=== PATIENT | male | born 1970 | race African-American/Black ===

== ENCOUNTER 2016-11-19 08:53 | Emergency (ER) | payer MEDICARE ==
[~2016-11-19 08:53] MED LIST: *HOMEMEDS; *UNABLE3; ADALAT CC60 MG PO; ALAWAY0.025 % OPH; AMB10 PO; ASAB PO; AT25 PO; BENTYL20 PO; CARDCD120 PO; CARTIA XT120 MG/24 PO; CAT3 PO; CENTRUM TAB1 TAB PO; CORDARONE PO; COREG12 PO; COREG25 PO; COZ50 PO; DEMA100 PO; DEMA20 PO; DIABETA5 PO; DIOVAN HC2 PO; DIOVAN HCT320 MG/25 PO; DIOVAN320 MG PO; DSS PO; DURA50 TOP; EMLA TOP; FLEX PO; FLEXERIL5 MG PO; FLORASTOR250 MG PO; FLUCON2 PO; GLUCPH PO; GLYNASE1.5 PO; HALF81 PO; HUMALOG SC; HUMULIN N1 ML SC; HUMULIN SC; HYDRALAZINE100 MG PO; IMDUR60 PO; IMOD PO; INSNOV7030 SC; INSNOVR SC; KEPPRA500 PO; KLOR-CON 88 MEQ PO; L20 PO; L40 PO; LEVEMFLXPN SC; LIPITOR40 PO; LOM PO; LOP25 PO; LYRICA PO; MAGOX4 PO; MELA3 PO; MINOCIN100 PO; MULTIVIT/MIN PO; NEUR300 PO; NIFEDIAC CC60 MG PO; NORV10 PO; NOVOLOGMIX SC; NOVOPEN SC; NXL6 PO; OXYCON40 PO; P10 PO; PACERONE200 MG PO; PENICILLN VK500 MG PO; PHOSLO PO; PR25 PO; PRILO PO; PRIN10 PO; PRIN20 PO; PROVHFA INH; PROZAC PO; QUESLITE PO; QUESTRAN4 GM PO; ROXICODONE30 MG PO; SEROQUEL1C; SEROQUEL1C PO; SLOWMAG PO; SODBICAR10 PO; SOMATAB PO; THERAPEUTIC PO; TOPROL XL200 MG PO; VITAMIN D2000 UNIT PO; WELCHOL 625 MG625 MG OR; XANAX1 MG PO; XIFAXAN550 MG PO; ZOCOR10 PO
== END 2016-11-19 10:54 | disposition home or self-care (01) ==
LOC: ER 08:53
DX: M54.5 Low back pain (principal); G89.29 Other chronic pain; I50.9 Heart failure, unspecified; I12.9 Hypertensive chronic kidney disease with stage 1 through stage 4 chronic kidney disease, or unspecified chronic kidney disease; N18.9 Chronic kidney disease, unspecified; K21.9 Gastro-esophageal reflux disease without esophagitis; F41.9 Anxiety disorder, unspecified; E11.9 Type 2 diabetes mellitus without complications; Z79.82 Long term (current) use of aspirin; Z79.899 Other long term (current) drug therapy; Z91.013 Allergy to seafood
CPT/HCPCS: 96372; 99283; A9270-GY; J1170; J1200

== ENCOUNTER 2016-11-22 15:02 | Inpatient (IN) | payer MEDICARE ==
--- NOTE | ~2016-11-22 | DS ---
Discharge Summary [facility] [id number] [place] [address] NAME: MILO KRAMER III : 68 STATUS : DIS IN PAT#: [id number] AGE: 46 ADM/REG DATE : 11/22/16 MR#: [id number] REPORT SERV DATE: 12/11/16 DICTATED BY: BEVERLY SAMPSON DATE: 12/08/16 REPORT STATUS : Draft TRANSCRIBED BY: REED DATE: 12/08/16 Data Collection from hospitalization DISCHARGE DIAGNOSES: 1. Septic shock - present on admission - etiology unclear. 2. Encephalopathy. 3. Seizures. 4. End-stage renal disease. 5. Diabetes mellitus. 6. Hypertension. 7. Chronic pain. 8. History of PEA arrest. 9. History of drug abuse. 10.History of renal cell carcinoma, status post partial nephrectomy. 11.History of prior cerebral aneurysm. 12.History of trigeminal neuralgia. 13.History of cerebrovascular accident. CONSULTATIONS: 1. Nathaniel Kirby MD. 2. Melanie Longoria M.D. 3. Ger Alvarez M.D., Ph.D, F.A.C.C. 4. Rajeev Cope M.D. PROCEDURES PERFORMED: 1. Placement of right femoral central line on 11/22/2016. 2. CT scan of the brain without contrast on 11/22/2016. 3. Lumbar spinal puncture on 11/22/2016. 4. CT scan of the abdomen and pelvis without contrast on 11/23/2016. 5. Electroencephalogram on 11/23/2016. MEDICATIONS: Aspirin 81 mg daily, Lipitor 40 mg at bedtime, Cordarone 200 mg daily, Coreg 12.5 mg twice a day, heparin 5000 units subcutaneously every eight hours, NovoLog injection insulin as instructed, Keppra 1000 mg twice a day, Protonix 40 mg before breakfast, Zosyn 3.375 g IV every 12 hours as instructed, Seroquel 25 mg at bedtime, Zoloft 50 mg daily, vancomycin as instructed, Xanax 0.5 mg every eight hours as needed, Norvasc 5 mg twice a day as needed and as instructed, Benadryl as instructed, glucose three tablets as needed, glucose tablets six tablets as needed, [place] 5/325 one tablet every four hours as needed, and nitroglycerin 0.4 mg sublingually as needed. CONDITION AT DISCHARGE: Stable. DISPOSITION: The patient was discharged to [facility] on a renal diet with activities as instructed. HOSPITAL COURSE: This is a 46-year-old man who dialyzes on Mondays, Wednesdays, and Fridays. He was brought to the [facility] Emergency Department after having a witnessed seizure by his mother and grandmother who were at the bedside. En route to the hospital as well as here at Discharge Summary [address] [place]. [address] NAME: MILO KRAMER III : 68 STATUS : DIS IN PAT#: [id number] AGE: 46 ADM/REG DATE : 11/22/16 MR#: [id number] REPORT SERV DATE: 12/11/16 DICTATED BY: BEVERLY SAMPSON DATE: 12/08/16 REPORT STATUS : Draft TRANSCRIBED BY: REED DATE: 12/08/16 [facility], he did receive 2 mg of IV Ativan as well as Keppra 1000 mg. He has a history that does involve previous seizure activity, and on previous discharge, he had been sent to follow up with [facility]. It was unclear through current review with his family if he kept his followup or the consistency of his medication regimen. The patient is postictal currently and was unable to be interviewed for history of present illness or active current complaints. His family reports that that morning they went to check on him for breakfast and he was found on the floor and was foaming at the mouth and actively seizing. As the seizure subsided, his grandmother could not physically raise the patient out of the floor and she contacted EMS for transfer and evaluation. On evaluation, the patient was in a postictal state and did not interact. He had an elevated white count and said that he did not feel well over the last few days since Sunday prior to admission. The family reported no instances of nausea, vomiting, or diarrhea. He has had no febrile episodes. He was in no acute distress at this time. He was admitted to the hospital for further evaluation and treatment. Upon admission, cultures were obtained. He was going to be covered with vancomycin and Zosyn. It was felt that we may need to perform possible lumbar puncture. Echocardiogram was going to be performed. Previous echo showed ejection fraction of 25%. We would treat his magnesium and ionized calcium to be collected as his calcium shows to be somewhat low. He was seen by Dr. Nathaniel Kirby. The patient has had seizures in the past year. He had been noncompliant with taking his anticonvulsive medication. Hypomagnesemia will be corrected to decrease his risk for recurrent seizures. A lumbar puncture was recommended to rule out intracranial infection. Blood cultures were being obtained. He was seen by Dr. Melanie Longoria. A CT scan of the brain without contrast had been performed and it did not show any unusual findings. He had undergone a lumbar puncture, which had shown 4 white blood cells, elevated protein of 84, and a glucose of 65. It was clear and not suggestive of bacterial meningitis. He remained postictal and could maintain an airway. He could answer simple yes and no questions. The etiology of his septic shock was not entirely clear. Blood and urine cultures had been obtained. The patient was felt to be in critical condition. A right femoral central line was placed. Hemodialysis therapy was performed. The next day, his central line was removed inadvertently. Hypoxemic respiratory failure was felt likely secondary to volume overload. This did improve with hemodialysis. He was seen in consultation by Dr. Ger Alvarez regarding elevated troponin. He did report chest pain that was sharp in nature and was worse when taking a deep breath. It had been constant for the past 24 hours. It did not occur prior to the seizure. He reported that he had not been taking his seizure medication prior to this. Electrocardiogram showed sinus rhythm/sinus tachycardia with nonspecific ST-segment changes. Creatinine level was 13 and white count was 33,000. Troponin at its highest was 0.37 and had now decreased to 0.16. Demand-related ischemia was suspected - no acute coronary syndrome. This was felt to be secondary to septic shock and seizure. He appeared relatively stable other than his hemodynamic problems related to septic shock. He had no cardiac chest pain. He is going to be placed back on aspirin and on appropriate long-term cardiac medications. CT scan of the abdomen and pelvis without contrast was performed. He also had an electroencephalogram performed. This was an abnormal EEG characterized by the presence of diffuse slowing of cerebral activity with a large amount of increased lower frequencies seen in the anterior head regions. This EEG was compatible with metabolic encephalopathy. A postictal state could not be ruled out. Clinical correlation was recommended. Kemarionra was increased. Discharge Summary [facility] [address] [place]. [address] NAME: MILO KRAMER III : 68 STATUS : DIS IN PAT#: [id number] AGE: 46 ADM/REG DATE : 11/22/16 MR#: [id number] REPORT SERV DATE: 12/11/16 DICTATED BY: BEVERLY SAMPSON DATE: 12/08/16 REPORT STATUS : Draft TRANSCRIBED BY: MODL DATE: 12/08/16 [address]iz[address] precautions were in place. The patient was also seen by Dr. Rajeev Cope. Vancomycin and Zosyn were continued. Cultures were going to be followed. Cultures were negative thus far. His chest pain had decreased. Procalcitonin level was elevated. He seemed to be recovering well. There had been no Levophed use overnight or throughout the day. He did seem more alert. Blood cultures remained negative. White count had decreased to 20.1. He still had difficulty following commands, felt that he may be back to his baseline. On 11/25/2016, he was feeling better. He had no new symptoms. He was afebrile. His blood cultures remained negative. White count had decreased to 10. He had no chest pain. Coreg dose was increased. He looked better. He was much more alert. His mental status continued to improve. On 11/26/2016, he was still very weak, but was slowly feeling better. His lungs were clear. White count decreased to 4.4. Over the next couple of days, discharge planning was begun. He was evaluated by Physical Therapy. On 11/28/2016, discharge instructions were given. Due to his improved and stable condition, he was discharged to [facility] with the above-stated instructions. Information collected by: Makayla Russo I submit the above information as my discharge summary. TG/REED Beverly Sampson M.D. / [id number] CC: Beverly Sampson M.D. Lionel Bernard M.D., Ph.D, F.A.C.C. MD Rajeev Mars M.D. [facility]
--- NOTE | ~2016-11-22 | HP ---
History And Physical [facility] [address] [place]. [address] NAME: MILO KRAMER 3RD : 68 STATUS : ADM IN [facility]#: [id number] AGE: 46 ADM/REG DATE : 11/22/16 MR#: [id number] REPORT SERV DATE: 11/22/16 DICTATED BY: BEVERLY SAMPSON DATE: 11/22/16 REPORT STATUS : Draft TRANSCRIBED BY: MODL DATE: 11/22/16 DATE OF ADMISSION: 11/22/2016 REASON FOR ADMISSION: End-stage renal disease, the patient with witnessed seizure. HISTORY OF PRESENT ILLNESS: This is a 46-year-old, male patient, who dialyzes on a Sunday, Sunday, Sunday schedule. He is brought to the [facility] Emergency Department status post witnessed seizure today by his mother and grandmother who are at bedside. En route to the hospital as well as here in [facility], he has received cumulatively 2 mg of IV Ativan as well as Keppra 1000 mg. He has a known history that does involve previous seizure activity, and on previous discharge, he has been sent to follow up with [facility]. It is unclear through current review with his family if he has kept his followups or the consistency of his medication regimen. The patient is post-ictal currently and is unable to be interviewed for HPI or active current complaints. His family reports that this morning they went to check on him for breakfast and he was found down in the floor and foaming at the mouth and actively seizing. As the seizure subsided, his grandmother could not physically raise the patient out of the floor, and she contacted EMS for transfer and evaluation. The patient, on evaluation here again is postictal and does not interact. He has an elevated white count, is said to "not feel well" over the last few days since Sunday of this week. The family reports no instances of nausea, vomiting, or diarrhea and report no febrile episodes. The patient is lying in bed this afternoon post- ictal by evaluation and does not have active complaints. He is in no acute distress. Family is present during current evaluation. PAST MEDICAL HISTORY: Positive for end-stage renal disease, dialysis on a Sunday, Sunday, Sunday schedule via a fistula at [facility], history also positive for diabetes mellitus, systolic congestive heart failure with last documented ejection fraction at 25%, AICD placement, AV graft placement in the left upper extremity, prior episodes of PEA arrest. The patient family reports that he was resuscitated previously two times, prior history of drug abuse. History of renal cell carcinoma, status post partial nephrectomy, prior cerebral aneurysm, trigeminal neuralgia, CVA, hypertension, diabetes mellitus, and previous reports of seizure activity. Previous right frontal craniotomy. REVIEW OF SYSTEMS: Review of systems is completed with the assistance of family member. The patient is unable to participate in current medical state. SOCIAL HISTORY: Reported by family; no EtOH, no illicit drugs. No tobacco. FAMILY HISTORY: Noncontributory and not reviewed during this evaluation and admission. MEDICATIONS/ALLERIGES: Unavailable for review currently as well as current allergies will be reviewed post completion by pharmaceutical staff. PHYSICAL EXAMINATION: VITAL SIGNS: Blood pressure 74/36, temperature at 97.8, respiratory rate of 20. He is 100% History And Physical [address] [address] NAME: MILO KRAMER 3RD : 68 STATUS : ADM IN [facility]#: [id number] AGE: 46 ADM/REG DATE : 11/22/16 MR#: [id number] REPORT SERV DATE: 11/22/16 DICTATED BY: BEVERLY SAMPSON DATE: 11/22/16 REPORT STATUS : Draft TRANSCRIBED BY: REED DATE: 11/22/16 on 2 L nasal cannula. GENERAL: He is an obtunded male patient, in no acute distress, lying in bed during evaluation. HEENT: Normocephalic and atraumatic. He is able to open eyes to sternal rub, slightly. No scleral icterus is detected nor conjunctival pallor. NECK: Supple without thyromegaly. No JVD or mass. CHEST: Shows positive S1 and S2. He does have an AICD placed with his left chest wall. LUNGS: Diminished. Basically clear to auscultation throughout without adventitious rhonchi or wheezes. GI: Shows positive bowel sounds in all four quadrants. No appreciable mass. No tenderness. : Deferred. EXTREMITIES: Show positive pulses to all four extremities. He does have a left upper extremity access available with palpable bruit and thrill. : Deferred. NEUROLOGIC: He is untestable. SKIN: Warm, dry, and intact to visualized surfaces. No rash, lesions, or ecchymosis. PSYCH: Mood and affect are not evaluated. LABORATORY DATA: Pertinent laboratories and imaging to this evaluation; CT of the brain without contrast shows a stable head CT status post right frontal craniotomy, continued mild areas of attenuation with subcortical white matter, bilateral superior frontal gyri. Sodium 140, potassium 4.3, chloride 100, CO2 of 21, BUN 38, creatinine 13.20, reflected GFR 5 mL/minute, glucose 76, calcium 6.6, magnesium 1.5, troponin 0.37. B-natriuretic peptide 1749.4. Portable chest x-ray identifies AICD with shallow inspiration. No acute cardiopulmonary abnormality. White blood cell count of 40.7, RBC 4.29, hemoglobin 13.7, hematocrit 43.4, platelets 159. ABG shows a pH of 7.34, pCO2 of 41, oxygen saturation at 96.2, current lactate level at 3.3. IMPRESSION AND PLAN: This is an end-stage renal disease patient who dialyzes on a Sunday, Sunday, Sunday schedule, found down at home, active seizure assumed with transportation by EMS now postictal with dosing of Keppra 1000 mg as well as Ativan of 2 and no active seizure status at this point. Full admission into the ICU level of care with elevated white blood count. We will panculture, cover with vanc and Zosyn, ask Infectious Disease evaluation. There has been discussion of possible lumbar puncture to be undertaken by Dr. Dennis in the emergency department. It is unclear at this point with current plans to recede. Consult Infectious Disease to evaluate given his previous sepsis and current white count on admission. Consult Neurology which I have spoken to today by phone. Consult Cardiology given elevated troponin and previous cardiac history. Undertake serial troponins, watch for elevation, evaluate echocardiogram, hold HD today until he is able to stabilize and place him on Levophed and titrate to maintain MAP of 60 and stabilize his blood pressure. If his blood pressure is unable to be stabilize, he may require CRRT. Protect his left upper extremity fistula, cover broadly with vanc and Zosyn. Ask pharmacy to dose. Evaluate home medications when those become available. Treat his magnesium. Check echocardiogram with previous noted echo showing ejection fraction of 25%. Treat his magnesium and ionized calcium to be collected as his calcium shows to be somewhat low. History And Physical [place] [place] [address] [place]. [address] NAME: MILO KRAMER 3RD : 68 STATUS : ADM IN PAT#: [id number] AGE: 46 ADM/REG DATE : 11/22/16 MR#: [id number] REPORT SERV DATE: 11/22/16 DICTATED BY: BEVERLY SAMPSON DATE: 11/22/16 REPORT STATUS : Draft TRANSCRIBED BY: REED DATE: 11/22/16 We appreciate evaluation and support from all subspecialty services as well as clinical support being given this afternoon by pharmacist on staff. Further modification of treatment plan may be made based on clinical presentation of the patient's laboratory results, further consultation with Renal attending. DICTATED BY: Jorge Luis Browning NP JR/REED Beverly Sampson M.D. / [id number] CC: Lionel Cheatham M.D.
--- NOTE | ~2016-11-22 | OP ---
Record Of Operation [facility] [address] [facility] [place] [address] NAME: MILO KRAMER 3RD : 68 STATUS : ADM IN PAT#: [id number] AGE: 46 ADM/REG DATE : 11/22/16 MR#: [id number] REPORT SERV DATE: 11/23/16 DICTATED BY: MERARY LONGORIA DATE: 11/23/16 REPORT STATUS : Draft TRANSCRIBED BY: MODL DATE: 11/23/16 DATE OF PROCEDURE: 11/22/2016 PROCEDURE: Placement of right femoral central line. REASON: The patient in septic shock and is in need of pressors and has no IV access. DESCRIPTION OF PROCEDURE: Consent was obtained from the patient. Risks and benefits were discussed. The right groin was prepped and draped in sterile fashion. Lidocaine 1% was used as local anesthetic. The right femoral vein was localized using ultrasound guidance. Large bore needle was inserted into the right femoral vein. Good blood return was obtained. A guidewire was then threaded through the large bore needle, which was then removed. The site was dilated. A triple-lumen 20 cm catheter was passed over the guidewire, which was then removed. Good blood return was obtained from all three ports. Sterile Biopatch was applied. Line was sewn in place with 2-0 silk and sterile dressing was applied. /REED Merary Longoria M.D. / [id number] CC: Lionel Cheatham M.D.
--- NOTE | ~2016-11-22 | CN ---
Consultation Report [facility] [address] [facility] [address] [place]. [address] NAME: MILO KRAMER 3RD : 68 STATUS : ADM IN PAT#: [id number] AGE: 46 ADM/REG DATE : 11/22/16 MR#: [id number] REPORT SERV DATE: 11/23/16 DICTATED BY: GER ROSS DATE: 11/23/16 REPORT STATUS : Draft TRANSCRIBED BY: MODL DATE: 11/23/16 CARDIOLOGY CONSULTATION DATE OF CONSULTATION: REASON FOR CONSULTATION: Elevated troponin. HISTORY OF PRESENT ILLNESS: Mr. Kramer is a 46-year-old man with end-stage renal disease and history of seizure disorder with also coronary disease, mild cardiomyopathy with an EF in the 40% range. We have not seen him for several months in the office. He reportedly had been doing fairly well, going to dialysis on a regular basis. He had a seizure a couple of days ago and was brought to the hospital after being found down with active seizure. He was postictal initially in the emergency room. Evaluation also suggested septic syndrome. The patient was admitted. He had elevated troponins and consultation was requested. There was no history of chest pain prior to that. He is now clinically improved. He is awake and answering questions. He does report chest pain that he described sharp in nature and worse when taking a deep breath. It has been constant for the past 24 hours. It did not occur prior to the seizure. He reports not taking seizure medicines prior to this. He had no dyspnea or chest pain prior to this episode. REVIEW OF SYSTEMS: The review of systems is as per the history of present illness. 10 other systems are negative. PAST MEDICAL HISTORY: 1. End-stage renal disease, on hemodialysis. 2. History of seizure disorder. 3. Diabetes. 4. History of defibrillator placement, 10/2015. 5. History of drug use. 6. History of stroke. 7. Hypertension. 8. Diabetes. 9. Ischemic cardiomyopathy. Echocardiogram 02/2016 with EF of 40%. 10.Coronary artery disease with arteriogram 10/2015 with occluded distal circumflex, left- to-left collaterals with no other significant disease. FAMILY HISTORY: Positive for hypertension and heart disease. SOCIAL HISTORY: Occasional tobacco. Patient lives with parents. ALLERGIES: SHELLFISH. HOME MEDICATIONS: Xanax as directed, amiodarone 800 daily, Lipitor 40 at bedtime, Omnicef Consultation Report [facility] [address] [place]. [address] NAME: MILO KRAMER 3RD : 68 STATUS : ADM IN PAT#: [id number] AGE: 46 ADM/REG DATE : 11/22/16 MR#: [id number] REPORT SERV DATE: 11/23/16 DICTATED BY: GER ROSS DATE: 11/23/16 REPORT STATUS : Draft TRANSCRIBED BY: REED DATE: 11/23/16 300 p.o. b.i.d., Flexeril 10 t.i.d., fentanyl, Keppra, oxycodone, Phenergan, Seroquel, Zoloft, Ambien. PHYSICAL EXAMINATION: VITAL SIGNS: Temperature 98.0, heart rate 120, blood pressure 104/55. GENERAL: The patient is a pleasant, healthy-appearing black male. He does have a craniotomy scar on the right frontal area. HEENT: Conjunctivae are anicteric, no xanthelasma, lips without cyanosis. NECK: Supple, carotids +2 without bruit. Jugular venous pressure does not appear to be elevated. LUNGS: Decreased breath sounds in the bases. CARDIOVASCULAR: Tachycardic. Normal S1 and S2. 1-2/6 systolic ejection murmur. ABDOMEN: Soft, nontender, nondistended. EXTREMITIES: No edema. NEURO/PSYCH: Alert and oriented to person, place and time. No obvious neurologic deficits. Mood and affect normal. DATA: Electrocardiogram shows sinus rhythm/sinus tachycardia with nonspecific ST-segment changes. Procalcitonin was 93, creatinine is 13. White blood cell count was 33,000. Troponin highest was 0.37, now decreased to 0.16. IMPRESSION: 1. Septic shock, on pressors. 2. Status post seizure, history of medication noncompliance. 3. Elevated troponin. Suspect demand related ischemia. No acute coronary syndrome. Secondary to septic shock and seizure. 4. End-stage renal disease. 5. Coronary artery disease with previously occluded distal circumflex. 6. Ischemic cardiomyopathy. EF 40% by previous echo. 7. History of defibrillator placement. 8. Hypertension and hypercholesterolemia with diabetes. 9. Noncardiac chest pain by history. RECOMMENDATIONS: Mr. Kramer's cardiac status appears relatively stable other than hemodynamic problems related to septic shock. I believe his troponins are easily explainable by his sepsis and seizure. He has no cardiac chest pain. His current chest pain certainly sounds noncardiac in nature. He has no acute EKG changes. His troponin is declining with ongoing sharp chest pain. I would get him back on aspirin and get him on appropriate long-term cardiac medicines, but would not pursue any further cardiac evaluation at this time. Thank you for this consultation. Please contact me if you have any further questions. Consultation Report [place] [id number] [facility] [address] NAME: MILO KRAMER 3RD : 68 STATUS : ADM IN PAT#: [id number] AGE: 46 ADM/REG DATE : 11/22/16 MR#: [id number] REPORT SERV DATE: 11/23/16 DICTATED BY: GER ROSS DATE: 11/23/16 REPORT STATUS : Draft TRANSCRIBED BY: REED DATE: 11/23/16 WO/REED Ger Ross M.D., Ph.D, F.A.C.C. / [id number] CC: Lionel Cheatham M.D.
--- NOTE | ~2016-11-22 | EEG ---
Electroencephalogram [id number] [place]. [address] NAME: MILO KRAMER 3RD : 68 STATUS : ADM IN PAT#: [id number] AGE: 46 ADM/REG DATE : 11/22/16 MR#: [id number] REPORT SERV DATE: 11/23/16 DICTATED BY: NATHANIEL KIRBY DATE: 11/23/16 REPORT STATUS : Draft TRANSCRIBED BY: MODL DATE: 11/23/16 INTERPRETING PHYSICIAN: Nathaniel Kirby MD. EEG NUMBER: [id number]. REASON FOR EEG: Recurrent seizures, history of cerebral aneurysm repair, status post craniotomy. 23 surface electrodes, 10-20 international placement was used. The patient was noted to be drowsy and asleep throughout the study. The background activity consisted of poorly organized, moderate to high voltage, irregular in appearance, 5-6 cycles per second located in the posterior head regions. Continuous frontal slowing was seen, more prominent in right frontal central regions. High voltage theta and delta range activity of 2-3 hertz was seen throughout this study. That area corresponds the patient's post craniotomy. The patient's monitor car operator showed sinus tachycardia, heart rate of approximately 120 beats per minute. Photic stimulation did not produce any changes. No driving response posteriorly was noted. Video monitoring was utilized. No tonic-clonic activity was seen, although patient appeared restless towards the end of the study. IMPRESSION: ABNORMAL EEG CHARACTERIZED BY PRESENCE OF DIFFUSE SLOWING OF CEREBRAL ACTIVITY WITH LARGE AMOUNT OF INCREASED LOWER FREQUENCIES SEEN IN THE ANTERIOR HEAD REGIONS. THIS EEG IS COMPATIBLE WITH METABOLIC ENCEPHALOPATHY. A POSTICTAL STATE COULD NOT BE RULED OUT. CLINICAL CORRELATION IS RECOMMENDED. NICOLAA/REED Nathaniel Kirby MD / [id number] CC: Lionel Cheatham M.D.
--- NOTE | ~2016-11-22 | CN ---
Consultation Report [facility] [address] [place]. [address] NAME: MILO KRAMER 3RD : 68 STATUS : ADM IN PAT#: [id number] AGE: 46 ADM/REG DATE : 11/22/16 MR#: [id number] REPORT SERV DATE: 11/23/16 DICTATED BY: NATHANIEL KIRBY DATE: 11/22/16 REPORT STATUS : Draft TRANSCRIBED BY: MODL DATE: 11/22/16 NEUROLOGICAL CONSULTATION EVALUATION DATE OF CONSULTATION: 11/22/2016 REQUESTING PHYSICIAN: Nephrology Service and [facility]. LOCATION OF THE PATIENT: Emergency room bed 10. The patient is being admitted to the CCU. This is a critical care visit, approximately 55 minutes. HISTORY OF PRESENT ILLNESS: History was obtained from patient's mother who was at the patient's bedside. The patient was brought to the emergency room after he was found to have generalized tonic-clonic seizure while at home. The patient was not able to participate in the interview in view of his poorly responsive state. The patient was found by his elderly father to have tonic-clonic activity involving both arms and legs, and the patient being totally unresponsive for several minutes. As per the patient's mother, this seizure lasted 7-8 minutes. The patient was unresponsive, confused, and had difficulty breathing. The patient has had seizures in the past year, has been noncompliant with taking his anticonvulsant medication. PAST MEDICAL HISTORY: A 46-year-old male with history of end-stage disease on hemodialysis, past history of cerebrovascular accident six years ago and cerebral aneurysm repair at the same time which was performed in one of the hospitals in [place]. The patient has had a pacemaker placement and defibrillator placement in June of last year. In addition, the patient has had multiple surgeries which included left shoulder surgery in March of last year followed by postsurgical infection. As per the patient's mother, the patient stayed in hospital for a month on IV antibiotics, was then transferred to the rehabilitation. The patient does have history of kidney biopsy done three years ago and as per the patient's mother, it was told it was cancer which apparently was cured by surgery. The patient did not take chemotherapy or other anticancer treatment. The patient started having generalized seizures last year and was seen by one of our neurologist in [facility], at that time, started on Keppra which patient was taking twice a day. However, it is not clear when the patient stopped taking his medication or whether he had been compliant with his visits to neurologist. As per patient's mother, he may have stepped taking his medications "long time ago." FAMILY HISTORY: Significant history of hypertension, colon cancer, history of stroke in the patient's grandfather on the maternal side, grandfather on paternal side, and history of leukemia. ALLERGIES: TO SHRIMP. ALLERGIES TO MEDICATION, ? ALLERGY TO IODINE. Consultation Report [address] [place]. [address] NAME: MILO KRAMER 3RD : 68 STATUS : ADM IN PAT#: [id number] AGE: 46 ADM/REG DATE : 11/22/16 MR#: [id number] REPORT SERV DATE: 11/23/16 DICTATED BY: NATHANIEL KIRBY DATE: 11/22/16 REPORT STATUS : Draft TRANSCRIBED BY: REED DATE: 11/22/16 SOCIAL HISTORY: The patient smokes as per mother occasionally, lives with his elderly parents. The patient has been on disability. MEDICATIONS: The patient's medications included Zoloft 50 mg daily, Flexeril 10 mg three times a day, Xanax 0.5 mg ? at bedtime, 6 pills of "pain medications" a day in addition to other medications which were not brought with the patient. REVIEW OF SYSTEMS: The patient's mother stated the patient in the past three to four days has been complaining of abdominal pain, recently had a flu-like illness, sinus infection. The patient had weight loss which was gradual prior to starting his hemodialysis approximately a year ago. The rest of 14-point review of system was negative. DATA: The patient's CT scan of the head was reviewed, it showed changes related to past craniotomy in the frontal region left greater than right. No evidence of intracranial hemorrhage, extracranial hematoma, or large vascular territory ischemia. No mass-effect. Mastoids are clear. Stable head CT post right frontal craniotomy. Continued mild areas of decreased attenuation within the subcortical white matter of bilateral frontal superior gyri, mild right maxillary sinus mucosal disease. LABORATORY STUDIES: Showed drug screen to be positive for opiates. Arterial blood gases show pH 7.34, pCO2 of 41, pO2 of 90, BE -3.8, oxygen saturation 96.2, hemoglobin 13.2, hematocrit not resulted yet. Sodium 140, potassium 4.3, chloride 100, carbon dioxide 21, BUN 38, creatinine 13.20, GFR 5, calcium 6.6, magnesium 1.5, troponin 0.37, BNP 1749.4. Portable chest; cardiomegaly, AICD, shallow inspiration, no acute cardiopulmonary abnormality. Chest pain profile; WBC count 40,700, RBC 4.29, hemoglobin 13.7, hematocrit 43.4, MCV 101.2. MCH 31.9. Platelet count 159,000. Neutrophils 92.5, monocytes 3.9. PHYSICAL EXAMINATION: VITAL SIGNS: Blood pressure on admission was 80/50. Temperature was 97.8 oral, pulse was 105, respirations 14, O2 saturation 99, MAP 89. GENERAL: The patient was lethargic, aroused briefly, did not follow commands, appeared to resist eye opening on examination, appeared confused, semi-alert. HEAD AND NECK: Examination showed signs of frontal craniotomy. EYE EXAM: Sclerae were not icteric. Conjunctivae were pink. ENT: Exam was difficult to perform in view of poor cooperation. NECK: Neck was supple. There is no Kernig or Brudzinski. CHEST: Symmetrical. Lungs appeared clear. HEART: Auscultation of the heart revealed regular S1, S2. No S3, S4, gallops were noted. ABDOMEN: Difficult to examine, the patient is slightly restless. EXTREMITIES: Show no clubbing, cyanosis. There is no peripheral edema. Decreased muscle bulk was noted in the lower extremities. SKIN: Clear. Some hyperpigmented areas noted in distal legs. Consultation Report [address] [address] NAME: MILO KRAMER 3RD : 68 STATUS : [facility]M [facility]#: [id number] AGE: 46 ADM/REG DATE : 11/22/16 MR#: [id number] REPORT SERV DATE: 11/23/16 DICTATED BY: NATHANIEL KIRBY DATE: 11/22/16 REPORT STATUS : Draft TRANSCRIBED BY: REED DATE: 11/22/16 NEUROLOGICAL EXAMINATION: The patient appeared either postictal, had altered mental status related to other pathology. He was not cooperative, did not follow commands well. Examination showed no significant asymmetry on inspection of the face. The patient resist eye opening, appeared to have no evidence of dysconjugate gaze. The pupils were 2 mm, reacted to light. Funduscopic exam impossible to perform. Motor examination showed slight decrease of strength in the left distal leg as compared to the rest of motor function in the extremities when partially responding, partially resisting movement. Deep tendon reflexes were difficult to perform, appeared symmetrical in upper extremities, decreased in lower extremities. IMPRESSION: 1. Recurrent seizures, rule out noncompliance to anticonvulsants treatment and regiment, past history of CVA, past history of cerebral aneurysm surgery. 2. End-stage renal disease, on hemodialysis. 3. Hypertension, questionable control. 4. Diabetes, probable peripheral neuropathy. 5. Increased risk of stroke. 6. Past history of multiple surgeries including shoulder surgery followed by postoperative infection with prolonged antibiotic treatment and rehabilitation. 7. Profound leukocytosis. WBC count of 40, cause to be determined. Certainly differential diagnosis includes infectious process versus underlying cancer. 8. Macrocytosis. Rule out vitamin B12 or folate deficiency. 9. History of cardiac arrhythmias. Pacemaker placement. Defibrillator placement. I recommend to provide a loading dose of 1500 mg of Keppra, thereafter continue with 1000 mg of Keppra b.i.d. EEG tomorrow. The patient will not be able to have the MRI. We will monitor patient with repeated CTs if needed. CTA may be helpful to determine if the patient has the recurrent cerebral aneurysm or other vascular abnormalities. 10.Electrolyte imbalance. Hypomagnesemia which needs to be corrected to decrease risk for recurrent seizures. I recommend to obtain a lumbar puncture to rule out intracranial infection. All above points were discussed with the patient's health promotion manager ( ). Rule out underlying sepsis, the patient will be getting blood cultures done prior to leaving the emergency room to go to the CCU. Thank you for allowing me to participate in this patient's care. Neurology will follow with you. ZION/MODL Nathaniel Kirby MD Consultation Report [address] [place] [place]. [address] NAME: MILO KRAMER 3RD : 68 STATUS : ADM IN PAT#: [id number] AGE: 46 ADM/REG DATE : 11/22/16 MR#: [id number] REPORT SERV DATE: 11/23/16 DICTATED BY: NATHANIEL KIRBY DATE: 11/22/16 REPORT STATUS : Draft TRANSCRIBED BY: REED DATE: 11/22/16 / [id number] CC: Lionel Cheatham M.D.
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
[2016-11-22 15:28] LABS: BASOPHILS 0.1 %; BASOPHILS ABSOLUTE 0.03 10/3/uL (0.0-0.16); EOSINOPHILS 0 %; HEMOGLOBIN 13.7 g/dL (13.6-17.8); IMMATURE GRANULOCYTES 0.5 %; IMMATURE GRANULOCYTES ABSOLUTE 0.21 10/3/uL (0.0-0.11); LYMPHOCYTES ABSOLUTE 1.23 10/3/uL (0.67-4.30); MEAN CORPUS HGB CONC 31.6 g/dL (32.0-36.0); MEAN CORPUSCULAR HEMOGLOB 31.9 pg (26.0-34.0); MEAN PLATELET VOLUME 11.2 fL (9.2-13.0); MONOCYTES 3.9 %; NEUTROPHILS 92.5 %; NEUTROPHILS ABSOLUTE 37.66 10/3/uL (2.02-8.40); RBC DISTRIBUTION WIDTH 16.6 % (12.0-16.0); RED CELL COUNT 4.29 10/6/uL (4.7-6.1)
[2016-11-22 15:32] LABS: ER CBC TAT 0 Hrs 09 Mins; HEMATOCRIT 43.4 % (40.0-51.0); MEAN CORPUSCULAR VOLUME 101.2 fL (80-100); PLATELET COUNT 159 10/3/uL (150-400); WHITE BLOOD CELLS 40.7 10/3/uL (4.5-10.5)
[2016-11-22 15:35] LABS: MANUAL DIFF NO %
[2016-11-22 15:45] LABS: INTERNATIONAL NORMAL RATI 1.4 UNITS (-); PROTIME (NOT ORD) 16.8 SEC (12.0-14.5)
[2016-11-22 15:46] LABS: BUN (BLOOD UREA NITROGEN) 38 MG/DL (6-23); CALCIUM, SERUM 6.6 MG/DL (8.5-10.4); CHEST PAIN PROFILE TAT 0 Hrs 23 Mins; CHLORIDE, SERUM 100 MMOL/L (96-112); CO2 (CARBON DIOXIDE) 21 MMOL/L (24-34); GFR AFRICAN AMERICAN 5 ML/MIN (>=60); GFR NON AFRICAN AMERICAN 4 ML/MIN (>=60); GLUCOSE, SERUM 76 MG/DL (60-99); POTASSIUM, SERUM 4.3 MMOL/L (3.5-5.3); SODIUM, SERUM 140 MMOL/L (135-148); TROPONIN I 0.37 NG/ML (<0.05)
[2016-11-22 16:01] LABS: BAND NEUTROPHILS 29 %; ER DIFF TAT 0 Hrs 38 Mins; IMMATURE GRANS ABSOLUTE (CALC) 1.63 10/3/uL (0.0-0.11); LYMPHOCYTES 3 %; LYMPHOCYTES ABSOLUTE (CALC) 1.22 10/3/uL (0.67-4.30); METAMYELOCYTES 2 %; MONOCYTES 4 %; MONOCYTES ABSOLUTE (CALC) 1.63 10/3/uL (0.21-1.20); MYELOCYTES 2 %; NEUTROPHILS ABSOLUTE (CALC) 36.22 10/3/uL (2.02-8.40); SEGMENTED NEUTROPHIL (0) 60 %; TOTAL NUCLEATED CELLS 100
[2016-11-22 16:07] LABS: PLATELET ESTIMATE ADQ (ADEQUATE)
[2016-11-22 16:08] LABS: MACROCYTES 1+ (5-10/OIF) (0-5/OIF)
[2016-11-22 16:09] LABS: BURR CELLS 1+ (3-10/OIF) (0-2/OIF)
[2016-11-22 16:10] LABS: ALLENS TEST Pos; BE (BASE EXCESS) -3.8 MEQ/L (0 +/- 2.5); CARBOXYHEMOGLOBIN 2.5 % (0-3); DEVICE NC; HCO3 (ACTUAL BICARBONATE) 21.7 MEQ/L (23-27); HEMOBLOGIN CONTENT 13.2 G/DL (14-18); INSTRUMENT SERIAL # 8087; METHEMOGLOBIN 0.2 % (0-3); O2 CONTENT 17.5 VOL% (18-24); PCO2 (CO2 TENSION) 41 MMHG (35-45); PO2 (O2 TENSION) 90 MMHG (79-93); SAMPLE Arterial; pH 7.34 (7.37-7.43)
[2016-11-22] MEDS ORDERED: ROXICODONE30 MG PO (16:53)
[2016-11-22] MEDS ORDERED: OMNICEF300 PO (16:53)
[2016-11-22] MEDS ORDERED: X5 PO (16:54)
[2016-11-22] MEDS ORDERED: KEPPRA500 PO (16:54)
[2016-11-22] MEDS ORDERED: ZOL50 PO (16:54)
[2016-11-22] MEDS ORDERED: PACERONE400 MG PO (16:54)
[2016-11-22] MEDS ORDERED: AMB10 PO (16:55)
[2016-11-22] MEDS ORDERED: PR25 PO (16:55)
[2016-11-22] MEDS ORDERED: SEROQUEL25 PO (16:55)
[2016-11-22] MEDS ORDERED: FLEX PO (16:55)
[2016-11-22] MEDS ORDERED: LIPITOR40 PO (16:55)
[2016-11-22] MEDS ORDERED: DURA50 TOP (16:56)
[2016-11-22 17:51] LABS: AMPHETAMINES (NOT ORD) NEG (NEG); BARBITURATES (NOT ORDERED NEG (NEG); BENZODIAZEPINES (NOT ORD) NEG (NEG); CANNABINOIDS (THC) NEG (NEG); COCAINE (NOT ORDERED) NEG (NEG); OPIATES POS (NEG); PHENCYCLIDINE(PCP) NEG (NEG); TRICYCLICS NEG (NEG)
[2016-11-22 19:06] LABS: GLUCOSE CSF 65 MG/DL (45-70); TOTAL PROTEIN, CSF 84.7 MG/DL (15-45)
[2016-11-22 19:59] LABS: CSF APPEARANCE (NOT ORD) CLEAR (CLEAR); CSF BASO 0 % (NO REF RANGE); CSF COLOR (NOT ORD) COLORLESS (COLORLESS); CSF EOS 0 % (0-1); CSF LYMPH (NOT ORD) 65 % (28-96); CSF MONO 34 % (16-56); CSF RBC (NOT ORD) 0 MM3 (NO REFERENCE); CSF SEGS (NOT ORD) 1 % (0-7); CSF WBC (NOT ORD) 4 /uL (0-10); CSF XANTHROCHROMIA NEG (NEG)
[2016-11-22 22:09] LABS: CPK 344 U/L (0-200)
[2016-11-22 22:13] LABS: CK-MB 2.9 NG/ML
[2016-11-22 22:25] LABS: ASCORBIC ACID (UR NOT ORDER) NEG (NEG); BILIRUBIN, URINE NEGATIVE (NEG); KETONE, URINE TRACE MG/DL (NEG); LEUKOCYTE ESTERASE(NOT OR TRACE (NEG); WBC (NOT ORDERED) (RFLEX) 9 (0-5)
[2016-11-23 00:33] LABS: BASOPHILS 0.1 %; BASOPHILS ABSOLUTE 0.04 10/3/uL (0.0-0.16); EOSINOPHILS 0.1 %; EOSINOPHILS ABSOLUTE 0.02 10/3/uL (0.0-0.53); HEMATOCRIT 39.4 % (40.0-51.0); HEMOGLOBIN 12.3 g/dL (13.6-17.8); IMMATURE GRANULOCYTES 1.5 %; IMMATURE GRANULOCYTES ABSOLUTE 0.59 10/3/uL (0.0-0.11); LYMPHOCYTES 4.1 %; LYMPHOCYTES ABSOLUTE 1.61 10/3/uL (0.67-4.30); MEAN CORPUS HGB CONC 31.2 g/dL (32.0-36.0); MEAN CORPUSCULAR HEMOGLOB 31.3 pg (26.0-34.0); MEAN CORPUSCULAR VOLUME 100.3 fL (80-100); MEAN PLATELET VOLUME 10.9 fL (9.2-13.0); MONOCYTES 5.2 %; MONOCYTES ABSOLUTE 2.05 10/3/uL (0.21-1.20); NEUTROPHILS ABSOLUTE 34.84 10/3/uL (2.02-8.40); PLATELET COUNT 141 10/3/uL (150-400); RBC DISTRIBUTION WIDTH 16.3 % (12.0-16.0); RED CELL COUNT 3.93 10/6/uL (4.7-6.1); WHITE BLOOD CELLS 39.2 10/3/uL (4.5-10.5)
[2016-11-23 00:34] LABS: MANUAL DIFF NO %
[2016-11-23 00:46] LABS: INSTRUMENT SERIAL # 35151
[2016-11-23 00:47] LABS: ALLENS TEST Pos; BE (BASE EXCESS) -2.2 MEQ/L (0 +/- 2.5); CARBOXYHEMOGLOBIN 0.6 % (0-3); DEVICE NC; HCO3 (ACTUAL BICARBONATE) 24.1 MEQ/L (23-27); HEMOBLOGIN CONTENT 13.2 G/DL (14-18); METHEMOGLOBIN 0.5 % (0-3); O2 CONTENT 17.6 VOL% (18-24); OPERATOR ID 31061; PCO2 (CO2 TENSION) 47 MMHG (35-45); PO2 (O2 TENSION) 87 MMHG (79-93); SAMPLE Arterial; pH 7.33 (7.37-7.43)
[2016-11-23 00:50] LABS: ANISOCYTOSIS 1+ (5-10/OIF) (0-5/OIF); BAND NEUTROPHILS 17 %; EOSINOPHILS 1 %; EOSINOPHILS ABSOLUTE (CALC) 0.39 10/3/uL (0.0-0.53); IMMATURE GRANS ABSOLUTE (CALC) 0.39 10/3/uL (0.0-0.11); LYMPHOCYTES 3 %; LYMPHOCYTES ABSOLUTE (CALC) 1.18 10/3/uL (0.67-4.30); MACROCYTES 1+ (5-10/OIF) (0-5/OIF); METAMYELOCYTES 1 %; MONOCYTES 6 %; MONOCYTES ABSOLUTE (CALC) 2.35 10/3/uL (0.21-1.20); NEUTROPHILS ABSOLUTE (CALC) 34.89 10/3/uL (2.02-8.40); PLATELET ESTIMATE SLT DEC (ADEQUATE); SEGMENTED NEUTROPHIL (0) 72 %; TOTAL NUCLEATED CELLS 100
[2016-11-23 00:56] LABS: A/G RATIO 0.7 (0.7-1.9); ALBUMIN 2.6 G/DL (3.5-5.0); CHLORIDE, SERUM 100 MMOL/L (96-112); CO2 (CARBON DIOXIDE) 25 MMOL/L (24-34); GFR AFRICAN AMERICAN 5 ML/MIN (>=60); GFR NON AFRICAN AMERICAN 4 ML/MIN (>=60); SGOT(AST) 52 U/L (5-40); SGPT(ALT) 49 U/L (5-65); SODIUM, SERUM 137 MMOL/L (135-148); TOTAL PROTEIN 6.6 G/DL (6.0-8.5)
[2016-11-23 01:02] LABS: ALKALINE PHOSPHATASE 140 U/L (45-117); BUN (BLOOD UREA NITROGEN) 48 MG/DL (6-23); CALCIUM, SERUM 5.8 MG/DL (8.5-10.4); GLUCOSE, SERUM 116 MG/DL (60-99); POTASSIUM, SERUM 6.5 MMOL/L (3.5-5.3); TOTAL BILIRUBIN 1.2 MG/DL (0-1.2)
[2016-11-23 01:14] LABS: INFLUENZA A SCREEN NEGATIVE (NEGATIVE); INFLUENZA B SCREEN NEGATIVE (NEGATIVE)
[2016-11-23 01:36] LABS: PHOSPHORUS, SERUM 6.1 MG/DL (2.5-4.5)
[2016-11-23 02:28] LABS: TROPONIN I 0.17 NG/ML (<0.05)
[2016-11-23 04:38] LABS: HEMATOCRIT 38.1 % (40.0-51.0); MEAN CORPUS HGB CONC 31.5 g/dL (32.0-36.0); MEAN CORPUSCULAR HEMOGLOB 31.3 pg (26.0-34.0); MEAN CORPUSCULAR VOLUME 99.2 fL (80-100); MEAN PLATELET VOLUME 11.7 fL (9.2-13.0); PLATELET COUNT 140 10/3/uL (150-400); RBC DISTRIBUTION WIDTH 16.5 % (12.0-16.0); RED CELL COUNT 3.84 10/6/uL (4.7-6.1)
[2016-11-23 04:41] LABS: MANUAL DIFF YES %; WHITE BLOOD CELLS 33.3 10/3/uL (4.5-10.5)
[2016-11-23 04:56] LABS: ALBUMIN 2.5 G/DL (3.5-5.0); BUN (BLOOD UREA NITROGEN) 50 MG/DL (6-23); CHLORIDE, SERUM 98 MMOL/L (96-112); CO2 (CARBON DIOXIDE) 27 MMOL/L (24-34); GFR AFRICAN AMERICAN 5 ML/MIN (>=60); GFR NON AFRICAN AMERICAN 4 ML/MIN (>=60); GLUCOSE, SERUM 139 MG/DL (60-99); LACTATE 2.3 MMOL/L (0.3-2.4); PHOSPHORUS, SERUM 6.4 MG/DL (2.5-4.5); POTASSIUM, SERUM 5.9 MMOL/L (3.5-5.3); SODIUM, SERUM 135 MMOL/L (135-148)
[2016-11-23 05:11] LABS: CALCIUM, SERUM 6.4 MG/DL (8.5-10.4); TROPONIN I 0.16 NG/ML (<0.05)
[2016-11-23 06:32] LABS: BAND NEUTROPHILS 14 %; IMMATURE GRANS ABSOLUTE (CALC) 0.33 10/3/uL (0.0-0.11); LYMPHOCYTES 8 %; LYMPHOCYTES ABSOLUTE (CALC) 2.66 10/3/uL (0.67-4.30); METAMYELOCYTES 1 %; MONOCYTES 8 %; MONOCYTES ABSOLUTE (CALC) 2.66 10/3/uL (0.21-1.20); NEUTROPHILS ABSOLUTE (CALC) 27.64 10/3/uL (2.02-8.40); SEGMENTED NEUTROPHIL (0) 69 %; TOTAL NUCLEATED CELLS 100
[2016-11-23 06:33] LABS: PLATELET ESTIMATE ADQ (ADEQUATE); RBC MORPHOLOGY NORM (NORMAL)
[2016-11-23 06:47] LABS: PROCALCITONIN 93.15 ng/mL (<0.5)
[2016-11-23 10:56] LABS: FOLATE 9.3 NG/ML (>5.2); TROPONIN I 0.09 NG/ML (<0.05)
[2016-11-23 11:17] LABS: HEPATITIS B SURFACE ANTIGEN NON-REACTIVE (NON-REACT)
[2016-11-23 11:45] LABS: HEPATITIS B CORE AB IGM NON-REACTIVE (NON-REAC); HEPATITIS C ANTIBODY NON-REACTIVE (NON-REACT)
[2016-11-23 11:46] LABS: HIV COMBO NON-REACTIVE (NON REAC)
[2016-11-23 11:47] LABS: HEP A ANTIBODY IGM NON-REACTIVE (NON-REACT)
[2016-11-23 18:32] LABS: BASOPHILS 0.1 %; BASOPHILS ABSOLUTE 0.02 10/3/uL (0.0-0.16); EOSINOPHILS 0.7 %; EOSINOPHILS ABSOLUTE 0.14 10/3/uL (0.0-0.53); HEMOGLOBIN 11.5 g/dL (13.6-17.8); IMMATURE GRANULOCYTES 0.5 %; LYMPHOCYTES ABSOLUTE 1.28 10/3/uL (0.67-4.30); MANUAL DIFF NO %; MEAN CORPUS HGB CONC 31.1 g/dL (32.0-36.0); MEAN CORPUSCULAR HEMOGLOB 30.7 pg (26.0-34.0); MEAN CORPUSCULAR VOLUME 98.9 fL (80-100); MEAN PLATELET VOLUME 11.8 fL (9.2-13.0); MONOCYTES ABSOLUTE 1.28 10/3/uL (0.21-1.20); NEUTROPHILS 86.7 %; NEUTROPHILS ABSOLUTE 18.56 10/3/uL (2.02-8.40); PLATELET COUNT 124 10/3/uL (150-400); RBC DISTRIBUTION WIDTH 16.3 % (12.0-16.0); RED CELL COUNT 3.74 10/6/uL (4.7-6.1); WHITE BLOOD CELLS 21.4 10/3/uL (4.5-10.5)
[2016-11-24 03:42] LABS: BASOPHILS 0.1 %; BASOPHILS ABSOLUTE 0.02 10/3/uL (0.0-0.16); EOSINOPHILS 1.2 %; EOSINOPHILS ABSOLUTE 0.25 10/3/uL (0.0-0.53); HEMATOCRIT 35.1 % (40.0-51.0); IMMATURE GRANULOCYTES 0.7 %; IMMATURE GRANULOCYTES ABSOLUTE 0.15 10/3/uL (0.0-0.11); LYMPHOCYTES 7.6 %; LYMPHOCYTES ABSOLUTE 1.53 10/3/uL (0.67-4.30); MEAN CORPUS HGB CONC 31.3 g/dL (32.0-36.0); MEAN CORPUSCULAR HEMOGLOB 31.3 pg (26.0-34.0); MEAN CORPUSCULAR VOLUME 99.7 fL (80-100); MEAN PLATELET VOLUME 11.1 fL (9.2-13.0); MONOCYTES 6.1 %; MONOCYTES ABSOLUTE 1.22 10/3/uL (0.21-1.20); NEUTROPHILS 84.3 %; NEUTROPHILS ABSOLUTE 16.93 10/3/uL (2.02-8.40); PLATELET COUNT 127 10/3/uL (150-400); RBC DISTRIBUTION WIDTH 16.4 % (12.0-16.0); RED CELL COUNT 3.52 10/6/uL (4.7-6.1); WHITE BLOOD CELLS 20.1 10/3/uL (4.5-10.5)
[2016-11-24 03:43] LABS: MANUAL DIFF NO %
[2016-11-24 03:57] LABS: A/G RATIO 0.7 (0.7-1.9); ALBUMIN 2.8 G/DL (3.5-5.0); CHLORIDE, SERUM 99 MMOL/L (96-112); CO2 (CARBON DIOXIDE) 29 MMOL/L (24-34); SGOT(AST) 33 U/L (5-40); SGPT(ALT) 43 U/L (5-65); SODIUM, SERUM 136 MMOL/L (135-148); TOTAL PROTEIN 6.8 G/DL (6.0-8.5)
[2016-11-24 03:58] LABS: ALKALINE PHOSPHATASE 117 U/L (45-117); BUN (BLOOD UREA NITROGEN) 35 MG/DL (6-23); CALCIUM, SERUM 6.8 MG/DL (8.5-10.4); CREATININE 9.93 MG/DL (0.70-1.30); GFR AFRICAN AMERICAN 6 ML/MIN (>=60); GFR NON AFRICAN AMERICAN 6 ML/MIN (>=60); GLUCOSE, SERUM 69 MG/DL (60-99)
[2016-11-24 04:31] LABS: PHOSPHORUS, SERUM 6.5 MG/DL (2.5-4.5)
[2016-11-24 05:50] LABS: PROCALCITONIN 89.37 ng/mL (<0.5)
[2016-11-25 06:23] LABS: BASOPHILS 0.2 %; BASOPHILS ABSOLUTE 0.02 10/3/uL (0.0-0.16); EOSINOPHILS 3.3 %; EOSINOPHILS ABSOLUTE 0.35 10/3/uL (0.0-0.53); HEMATOCRIT 35.7 % (40.0-51.0); IMMATURE GRANULOCYTES 0.3 %; IMMATURE GRANULOCYTES ABSOLUTE 0.03 10/3/uL (0.0-0.11); LYMPHOCYTES 12.5 %; LYMPHOCYTES ABSOLUTE 1.32 10/3/uL (0.67-4.30); MEAN CORPUS HGB CONC 30.8 g/dL (32.0-36.0); MEAN CORPUSCULAR HEMOGLOB 31.3 pg (26.0-34.0); MEAN CORPUSCULAR VOLUME 101.4 fL (80-100); MEAN PLATELET VOLUME 11.6 fL (9.2-13.0); MONOCYTES 7.1 %; MONOCYTES ABSOLUTE 0.75 10/3/uL (0.21-1.20); NEUTROPHILS 76.6 %; NEUTROPHILS ABSOLUTE 8.08 10/3/uL (2.02-8.40); PLATELET COUNT 142 10/3/uL (150-400); RED CELL COUNT 3.52 10/6/uL (4.7-6.1)
[2016-11-25 06:24] LABS: MANUAL DIFF NO %; WHITE BLOOD CELLS 10.6 10/3/uL (4.5-10.5)
[2016-11-25 06:35] LABS: ALBUMIN 2.8 G/DL (3.5-5.0); CALCIUM, SERUM 7.7 MG/DL (8.5-10.4); CHLORIDE, SERUM 104 MMOL/L (96-112); CO2 (CARBON DIOXIDE) 29 MMOL/L (24-34); GLUCOSE, SERUM 64 MG/DL (60-99); POTASSIUM, SERUM 5.1 MMOL/L (3.5-5.3); SODIUM, SERUM 142 MMOL/L (135-148)
[2016-11-25 06:37] LABS: BUN (BLOOD UREA NITROGEN) 24 MG/DL (6-23); CREATININE 7.62 MG/DL (0.70-1.30); GFR AFRICAN AMERICAN 9 ML/MIN (>=60); GFR NON AFRICAN AMERICAN 8 ML/MIN (>=60); PHOSPHORUS, SERUM 5.3 MG/DL (2.5-4.5)
[2016-11-26 05:53] LABS: BASOPHILS 0.9 %; BASOPHILS ABSOLUTE 0.04 10/3/uL (0.0-0.16); EOSINOPHILS 7.4 %; EOSINOPHILS ABSOLUTE 0.33 10/3/uL (0.0-0.53); HEMATOCRIT 35.9 % (40.0-51.0); IMMATURE GRANULOCYTES 0.2 %; IMMATURE GRANULOCYTES ABSOLUTE 0.01 10/3/uL (0.0-0.11); LYMPHOCYTES 23.3 %; LYMPHOCYTES ABSOLUTE 1.03 10/3/uL (0.67-4.30); MEAN CORPUS HGB CONC 30.6 g/dL (32.0-36.0); MEAN CORPUSCULAR HEMOGLOB 30.8 pg (26.0-34.0); MEAN CORPUSCULAR VOLUME 100.6 fL (80-100); MEAN PLATELET VOLUME 11.7 fL (9.2-13.0); MONOCYTES 11.7 %; MONOCYTES ABSOLUTE 0.52 10/3/uL (0.21-1.20); NEUTROPHILS 56.5 %; PLATELET COUNT 127 10/3/uL (150-400); RBC DISTRIBUTION WIDTH 15.6 % (12.0-16.0); RED CELL COUNT 3.57 10/6/uL (4.7-6.1)
[2016-11-26 05:54] LABS: MANUAL DIFF NO %; WHITE BLOOD CELLS 4.4 10/3/uL (4.5-10.5)
[2016-11-26 05:59] LABS: ALBUMIN 2.7 G/DL (3.5-5.0); CALCIUM, SERUM 7.4 MG/DL (8.5-10.4); CHLORIDE, SERUM 107 MMOL/L (96-112); CO2 (CARBON DIOXIDE) 28 MMOL/L (24-34); PHOSPHORUS, SERUM 5.6 MG/DL (2.5-4.5); POTASSIUM, SERUM 5.1 MMOL/L (3.5-5.3); SODIUM, SERUM 144 MMOL/L (135-148)
[2016-11-26 06:00] LABS: BUN (BLOOD UREA NITROGEN) 35 MG/DL (6-23); GFR AFRICAN AMERICAN 7 ML/MIN (>=60); GFR NON AFRICAN AMERICAN 6 ML/MIN (>=60); GLUCOSE, SERUM 116 MG/DL (60-99)
[2016-11-26 06:59] LABS: PROCALCITONIN 45.91 ng/mL (<0.5)
[2016-11-27 04:18] LABS: BASOPHILS 0.5 %; BASOPHILS ABSOLUTE 0.02 10/3/uL (0.0-0.16); EOSINOPHILS 7.2 %; EOSINOPHILS ABSOLUTE 0.29 10/3/uL (0.0-0.53); HEMATOCRIT 35.5 % (40.0-51.0); HEMOGLOBIN 10.9 g/dL (13.6-17.8); IMMATURE GRANULOCYTES 0.2 %; IMMATURE GRANULOCYTES ABSOLUTE 0.01 10/3/uL (0.0-0.11); LYMPHOCYTES 30.2 %; LYMPHOCYTES ABSOLUTE 1.22 10/3/uL (0.67-4.30); MEAN CORPUS HGB CONC 30.7 g/dL (32.0-36.0); MEAN CORPUSCULAR HEMOGLOB 30.7 pg (26.0-34.0); MEAN PLATELET VOLUME 11.7 fL (9.2-13.0); MONOCYTES 9.9 %; PLATELET COUNT 138 10/3/uL (150-400); RBC DISTRIBUTION WIDTH 15.2 % (12.0-16.0); RED CELL COUNT 3.55 10/6/uL (4.7-6.1)
[2016-11-27 04:20] LABS: MANUAL DIFF NO %
[2016-11-27 04:32] LABS: ALBUMIN 2.6 G/DL (3.5-5.0); CALCIUM, SERUM 7.3 MG/DL (8.5-10.4); CHLORIDE, SERUM 108 MMOL/L (96-112); CO2 (CARBON DIOXIDE) 26 MMOL/L (24-34); PHOSPHORUS, SERUM 5.5 MG/DL (2.5-4.5); POTASSIUM, SERUM 4.9 MMOL/L (3.5-5.3); SODIUM, SERUM 145 MMOL/L (135-148)
[2016-11-27 04:34] LABS: BUN (BLOOD UREA NITROGEN) 43 MG/DL (6-23); GFR AFRICAN AMERICAN 6 ML/MIN (>=60); GFR NON AFRICAN AMERICAN 6 ML/MIN (>=60); GLUCOSE, SERUM 90 MG/DL (60-99)
== END 2016-11-28 19:35 | DRG 871 ==
LOC: ER 15:02 → CCU 18:48 → 2SO 11-24 18:20
PROVIDERS: Emergency Medicine; Internal Medicine Infectious Disease; Internal Medicine Nephrology; Internal Medicine Pulmonary Disease; Registered Nurse
PROC: 009U3ZX Drainage of Spinal Canal, Percutaneous Approach, Diagnostic (ICD-10-PCS; principal; 2016-11-22)
PROC: B01B1ZZ Fluoroscopy of Spinal Cord using Low Osmolar Contrast (ICD-10-PCS; 2016-11-22)
PROC: 06HM33Z Insertion of Infusion Device into Right Femoral Vein, Percutaneous Approach (ICD-10-PCS; 2016-11-22)
PROC: B54BZZA Ultrasonography of Right Lower Extremity Veins, Guidance (ICD-10-PCS; 2016-11-22)
PROC: 02HV33Z Insertion of Infusion Device into Superior Vena Cava, Percutaneous Approach (ICD-10-PCS; 2016-11-23)
PROC: 4A02X4A Measurement of Cardiac Electrical Activity, Guidance, External Approach (ICD-10-PCS; 2016-11-23)
PROC: 06HM33Z Insertion of Infusion Device into Right Femoral Vein, Percutaneous Approach (ICD-10-PCS; 2016-11-23)
PROC: 5A1D60Z (ICD-10-PCS; 2016-11-24)
DX: A41.9 Sepsis, unspecified organism (principal); N18.6 End stage renal disease; R65.21 Severe sepsis with septic shock; G93.40 Encephalopathy, unspecified; I50.22 Chronic systolic (congestive) heart failure; I24.8 Other forms of acute ischemic heart disease; I13.0 Hypertensive heart and chronic kidney disease with heart failure and stage 1 through stage 4 chronic kidney disease, or unspecified chronic kidney disease; E11.22 Type 2 diabetes mellitus with diabetic chronic kidney disease; G40.909 Epilepsy, unspecified, not intractable, without status epilepticus; I25.5 Ischemic cardiomyopathy; G50.0 Trigeminal neuralgia; I25.10 Atherosclerotic heart disease of native coronary artery without angina pectoris; F17.210 Nicotine dependence, cigarettes, uncomplicated; E78.00 Pure hypercholesterolemia, unspecified; J32.0 Chronic maxillary sinusitis; E83.42 Hypomagnesemia; M21.379 Foot drop, unspecified foot; Z83.3 Family history of diabetes mellitus; Z99.2 Dependence on renal dialysis; Z85.528 Personal history of other malignant neoplasm of kidney; Z86.74 Personal history of sudden cardiac arrest; Z86.73 Personal history of transient ischemic attack (TIA), and cerebral infarction without residual deficits; Z95.810 Presence of automatic (implantable) cardiac defibrillator; Z91.013 Allergy to seafood; Z91.14 Patient's other noncompliance with medication regimen; Z98.890 Other specified postprocedural states
CPT/HCPCS: 36569; 36600; 62270; 70450; 71010; 74176; 77003; 80048; 80053; 80069; 80074; 80202; 80305; 81001; 82150; 82330; 82533; 82550; 82553; 82607; 82746; 82805; 82945; 82962; 83605; 83690; 83735; 83880; 84100; 84145; 84157; 84484; 85025; 85610; 85730; 86140; 86710; 87040; 87070; 87077; 87186; 87205; 87389; 87641; 87804; 89051; 93005; 93306; 95816; 96372; 97161-GP; 99283; 99285; A9270-GY; C1751; C9113; G0257; G8978-CK-GP; G8979-CI-GP; J0610; J1170; J1200; J1953; J2543; J3370; P9047

== ENCOUNTER 2016-12-03 07:07 | Emergency (ER) | payer MEDICARE ==
[~2016-12-03 07:07] MED LIST changes: +OMNICEF300 PO; +PACERONE400 MG PO; +SEROQUEL25 PO; +X5 PO; +ZOL50 PO
== END 2016-12-03 18:17 | disposition home or self-care (01) ==
LOC: ER 07:07
DX: R53.83 Other fatigue (principal); E10.9 Type 1 diabetes mellitus without complications; Z91.013 Allergy to seafood; Z79.899 Other long term (current) drug therapy
CPT/HCPCS: 93005; 99285

== ENCOUNTER 2016-12-16 06:41 | Inpatient (IN) | payer MEDICARE ==
--- NOTE | ~2016-12-16 | DS ---
Discharge Summary [facility] [address] [place]. [address] NAME: MILO PARRA : 68 STATUS : DIS IN PAT#: [id number] AGE: 46 ADM/REG DATE : 12/16/16 MR#: [id number] REPORT SERV DATE: 12/30/16 DICTATED BY: HAFSA RAMEY DATE: 12/29/16 REPORT STATUS : Draft TRANSCRIBED BY: REED DATE: 12/29/16 Data Collection from hospitalization DISCHARGE DIAGNOSES: 1. Fever. 2. History of osteomyelitis. 3. Back pain. 4. Hypotension with supraventricular tachycardia. 5. End-stage renal disease. 6. Hypoalbuminemia. 7. Diabetes. 8. Chronic hypertension. 9. History of seizure disorder. 10.Polysubstance abuse including IV drug abuse. 11.History of remote stroke. 12.Coronary artery disease. 13.History of cardiac arrest. CONSULTATIONS: Rajeev Cope M.D. PROCEDURES PERFORMED: 1. CT scan of the cervical spine without contrast on 12/16/2016. 2. CT scan of the sacrum on 12/16/2016. 3. CT scan of the lumbar spine without contrast on 12/16/2016. 4. Ceretec whole-body scan on 12/19/2016. MEDICATIONS: Xanax 0.5 mg daily as needed, Norvasc 10 mg daily, Lipitor 40 mg at bedtime, Cipro 750 mg every 12 hours, Flexeril 10 mg three times a day as needed, Neurontin 300 mg three times a day, Atarax 25 mg twice a day as needed, Keppra 500 mg twice a day, Prilosec 20 mg daily as needed, Roxicodone 60 mg every eight hours as needed, Phenergan 25 mg every eight hours as needed, Seroquel 25 mg at bedtime as needed, Zoloft 50 mg daily, and Ambien 10 mg at bedtime as needed. CONDITION AT DISCHARGE: Stable. DISPOSITION: The patient was discharged home on a low-cholesterol, renal-diabetic diet with no concentrated carbohydrates with activities as instructed. He would follow up with hemodialysis as scheduled. HOSPITAL COURSE: This is a 46-year-old man who had been staying at [facility] and has end-stage renal disease and receives hemodialysis every other day at [facility]. He has a prior history of spinal hardware and he has had osteomyelitis. He has used IV drugs in the past. He had been in his usual state of health until early in the morning on the day prior to this admission when he awoke with severe lower back pain that he said had him crying out in pain. He began to develop chills and shaking chills over the course of the day. He was sent to the emergency department when he was found to have a fever of 104. He presented to the emergency department and had a blood pressure systolic in the 70s to 80s. He was rapidly treated with resuscitation with 3 liters IV normal saline. Systolics Discharge Summary [facility] [address] [place]. [address] NAME: MILO PARRA : 68 STATUS : DIS IN PAT#: [id number] AGE: 46 ADM/REG DATE : 12/16/16 MR#: [id number] REPORT SERV DATE: 12/30/16 DICTATED BY: HAFSA RAMEY DATE: 12/29/16 REPORT STATUS : Draft TRANSCRIBED BY: REED DATE: 12/29/16 remained in the 60s to 90s. Blood cultures were obtained. He was started on vancomycin and Zosyn. Urine culture was in the process of being collected. He indicated that the pain in his back was in the lumbar sacral region. He also had some pain in the lower cervical region posteriorly. He had a very mild headache. Changing positions did not cause complete relief. He was admitted to the hospital at this time for further evaluation and treatment. Upon admission, he was placed in the ICU. Pressors were going to be given as indicated. He was alert and lucid at this time, so it was felt that he could safely protect his airway, so we were going to let him to eat. We were awaiting blood and urine cultures. Hemodialysis therapy would be continued. Vancomycin and Zosyn were also continued. The patient has hypoalbuminemia, suspected secondary to chronic malnutrition. He was on minimal norepinephrine at this time. A CT scan of the cervical spine without contrast and CT scan of the sacrum as well as a CT scan of the lumbar spine without contrast were performed. Zosyn was decreased. Vancomycin was continued. PICC line had been inserted. The following day, the patient was seen by Dr. Rajeev Cope. Followup blood cultures were going to be obtained. He agreed with vancomycin and Zosyn. He felt the patient should undergo a bone scan as the patient said he was feeling much better. His blood pressure was more stable. Blood cultures were negative. Urinalysis had revealed 13 white blood cells. White blood cell count was 13.9. He was still in the ICU. [facility]. On 12/18/2016, his blood cultures remained negative. A CT scan of the lumbar spine had been unremarkable for any suggestion of diskitis or postoperative sepsis focus. Retroperitoneum demonstrated only small para-aortic lymph nodes. CT scan of the sacrum had shown bony fusion of the SI joints from degenerative arthritis. No cortical defect or mass was seen. There was no destructive lesion seen to suggest a focus of infection. CT scan of the cervical spine showed prior fusion C4-C7, which appeared intact. There was no evidence of obvious soft tissue mass or breakdown around the cervical collar. There were some suspect nodes level 1 in the neck raising concern for possible underlying lymphoma. He said he was feeling better. He had no further fevers. His lungs were clear. The next day, he did complain of back pain. He remained afebrile. He was evaluated by Physical Therapy. He continued to do well. On 12/20/2016, he had no new symptoms. Hemodialysis therapy was performed. His bone scan showed no evidence of diskitis, osteomyelitis in the lumbar region or elsewhere in the vertebral column on this. Tagged white blood cell scan. No abnormal soft tissue uptake to suggest a site of infection. Discharge instructions were given. Due to his improved and stable condition, he was discharged home with the above-stated instructions. Information collected by: Makayla Russo I submit the above information as my discharge summary. TG/MODL Hafsa Ramey M.D. / [id number] Discharge Summary [address] [address] NAME: MILO PARRA : 68 STATUS : DIS IN PAT#: [id number] AGE: 46 ADM/REG DATE : 12/16/16 MR#: [id number] REPORT SERV DATE: 12/30/16 DICTATED BY: HAFSA RAMEY DATE: 12/29/16 REPORT STATUS : Draft TRANSCRIBED BY: MODL DATE: 12/29/16 CC: Lionel Gallo M.D. Mark Anderson, M.D.
--- NOTE | ~2016-12-16 | HP ---
History And Physical [place] [id number] [facility] [place]. [address] NAME: MILO KRAMER III : 68 STATUS : ADM IN PAT#: [id number] AGE: 46 ADM/REG DATE : 12/16/16 MR#: [id number] REPORT SERV DATE: 12/16/16 DICTATED BY: HAFSA RAMEY DATE: 12/16/16 REPORT STATUS : Draft TRANSCRIBED BY: MODL DATE: 12/16/16 DATE OF ADMISSION: 12/16/2016 CHIEF COMPLAINT: Fever and back pain. HISTORY OF PRESENT ILLNESS: This is a kind and pleasant 46-year-old, gentleman, who is currently staying at [facility] and who has ESRD and receives hemodialysis every other day at [facility]. He has a prior history of spinal hardware and has had osteomyelitis and has used IV drugs in the past. He was in his usual state of health until survey chief yesterday when he awoke with severe lower back pain that he says had him crying out in pain. He began to develop chills and shaking chills over the course of the day yesterday. He was sent to the emergency department when he had developed a fever of 104 degrees Fahrenheit. He presented to the emergency department with systolic blood pressure in the 70s to 80s and he was rapidly treated with resuscitation with 3 L IV normal saline. Systolics remained in the 60s to 90s and he was sent to the ICU under my direction. Blood cultures have been sent and he was appropriately treated with vancomycin and Zosyn in the emergency department. Urine culture is in the process of being collected. The patient indicates the pain in his back is in the lumbar and sacral region by pointing to that region. He also notes some pain in the lower cervical region posteriorly. He indicates very mild headache at most. Changing positions does not cause complete relief. PAST MEDICAL HISTORY: 1. End-stage renal disease, on hemodialysis. 2. History of seizure disorder. 3. Diabetes. 4. History of AICD placement in October of 2015. He has ischemic cardiomyopathy and was noted to have left ventricular ejection fraction previously 25%, more recently 40% in February 2016. 5. Polysubstance abuse including IV drug abuse. 6. History of stroke remotely. 7. Chronic hypertension. 8. Coronary artery disease with arteriogram in October 2015 demonstrated occluded distal circumflex with left to left collaterals. 9. Previous instrumentation of spine. He had lumbar stenosis and radicular issues and he underwent L4 through S1 laminectomy and fusion in July of 2016. 10.History of irrigation debridement of right septic shoulder in February 2016. 11.Some type of instrumentation into the cervical spine previously. He required hardware in that region also and that is visible on his chest x-ray. 12.Left upper arm AV graft 6 mm [place]-Darius placed by Dr. Denis Rivera in October 2015. 13.Previous cardiac arrest. 14.Last admission was in late October 2016. He presented with septic shock at that time and the etiology was unclear. HOME MEDICATIONS: Alprazolam, atorvastatin, cyclobenzaprine, gabapentin, hydroxyzine, NovoLog 70/30, Keppra, omeprazole, oxycodone, promethazine, Seroquel, sertraline, Ambien as needed. History And Physical [address] [address] NAME: MILO KRAMER III : 68 STATUS : ADM IN [facility]#: [id number] AGE: 46 ADM/REG DATE : 12/16/16 MR#: [id number] REPORT SERV DATE: 12/16/16 DICTATED BY: HAFSA RAMEY DATE: 12/16/16 REPORT STATUS : Draft TRANSCRIBED BY: REED DATE: 12/16/16 ALLERGIES: LISTED ARE SHELLFISH AND MORPHINE. APPARENTLY MORPHINE GAVE HIM HEADACHE AND SHELLFISH HAS GIVEN HIM ANAPHYLAXIS IN THE PAST. FAMILY HISTORY: Positive for hypertension as well as cardiovascular disease. SOCIAL HISTORY: He stays at [facility] presently. He is disabled. He has chronic pain syndrome. He used to work in a chemical plant. When he was not staying at [facility], he was staying at home with his mother. He has teenage children. He is . Positive history of polysubstance abuse including IV drug abuse. REVIEW OF SYSTEMS: GENERAL: Positive chills and rigors as outlined above. GI: Denies nausea, vomiting, or diarrhea. : Still with occasional urinary output. He denied any dysuria. RESPIRATORY: Denies cough and has very mild shortness of breath if any. CARDIOVASCULAR: Denies chest pain. NEUROLOGIC: He denied headaches. Indicates point tenderness in the cervical spine and lumbar spine. No recent seizures. SKIN: No acute rashes. ENT: No sore throat or sinus pain or cough. All other review of systems was negative or noncontributory. PHYSICAL EXAMINATION: VITAL SIGNS: Temperature 101.9, heart rate 104 beats per minute, blood pressure systolic ranges 96-104 with diastolic 50-67 mmHg, respiratory rate 22 breaths per minute. He is presently receiving norepinephrine 0.1 mcg/kg per minute. GENERAL: He is chronically ill-appearing, gentleman, who is talkative and engaging and pleasant. He is in no distress at this time. He does indicate some discomfort in the back region. HEENT: Normocephalic, atraumatic. External ears and nose normal. Sinuses nontender. Oropharynx, mucous membranes moist and pale. Free of any ulcerations or exudates. Eye exam with conjunctivae free of any hemorrhages or exudates. Sclerae anicteric. Extraocular motor functions intact. Sinuses nontender. NECK: Moves easily without meningismus. No palpable masses or nodules. Trachea midline. MUSCULOSKELETAL: There is positive point tenderness to palpation over the cervical spine dorsum, lower cervical spine. There is also point tenderness to palpation. Midline lumbosacral region dorsal as well. LYMPHATIC: Anterior and posterior neck supraclavicular and abdominal regions were free of adenopathy. RESPIRATORY: Efforts are nonlabored. Lung enriquez are clear to auscultation throughout. ABDOMEN: Soft, nontender. Positive bowel sounds throughout. No palpable masses. No guarding. CARDIOVASCULAR: Regular rate and rhythm without any gallop, rub, or murmur. No peripheral edema. No peripheral cyanosis. SKIN: No rashes, breakdown, or discoloration. There is hematoma over small region near the History And Physical [address] [place]. [address] NAME: MILO KRAMER III : 68 STATUS : ADM IN PAT#: [id number] AGE: 46 ADM/REG DATE : 12/16/16 MR#: [id number] REPORT SERV DATE: 12/16/16 DICTATED BY: HAFSA RAMEY DATE: 12/16/16 REPORT STATUS : Draft TRANSCRIBED BY: MODL DATE: 12/16/16 AV graft in the left upper extremity, that region was nontender. There is no fluctuance or drainage. STUDIES: Chemistry: Sodium 140, potassium 3.9, chloride 105, CO2 of 24, BUN 29, creatinine 8.62, glucose 124, calcium 7.6, albumin 2.3, which means that the calcium actually corrects into the normal range. ALT 73, AST 117, alkaline phosphatase 435. Influenza screens were negative. Blood cultures pending. Chest x-ray reveals no acute infiltrate. AICD is noted. The chest x-ray was personally reviewed by me. IMPRESSIONS: 1. Fever, etiology unknown at this time. 2. Back pain in the aforementioned regions which raises possibility of osteomyelitis or possibly abscess or diskitis in the cervical spine or L-spine region. 3. Uncertain if he has had prior osteomyelitis. He has had an instrumentation. He does have hardware in the cervical and lumbosacral spine. 4. Hypotension with SVT which gives a septic picture at least on presentation. He is on minimal norepinephrine at this time. 5. Hypoalbuminemia, suspect secondary to chronic malnutrition. 6. Polysubstance abuse. 7. Chronic pain. 8. End-stage renal disease, for which the patient receives hemodialysis every other day. 9. Other past medical history and chronic problems as outlined above. PLAN: 1. Admission to ICU. 2. Pressors as indicated. 3. He is alert and lucid and I think he can safely protect his airway, so I am going to let him eat. 4. ID consult. 5. CT of lumbosacral spine and C-spine. 6. Await blood cultures and urine culture. 7. Hemodialysis on Mondays, Wednesdays, and Fridays. 8. Continuing vancomycin and Zosyn until seen by ID. USMAN/REED Hafsa Ramey M.D. / [id number] CC: Lionel Gallo M.D.
[2016-12-16 06:49] LABS: BASOPHILS 0.7 %; BASOPHILS ABSOLUTE 0.02 10/3/uL (0.0-0.16); EOSINOPHILS ABSOLUTE 0.11 10/3/uL (0.0-0.53); IMMATURE GRANULOCYTES 0.7 %; IMMATURE GRANULOCYTES ABSOLUTE 0.02 10/3/uL (0.0-0.11); LYMPHOCYTES 19.6 %; LYMPHOCYTES ABSOLUTE 0.54 10/3/uL (0.67-4.30); MEAN CORPUSCULAR HEMOGLOB 30.6 pg (26.0-34.0); MEAN PLATELET VOLUME 11.2 fL (9.2-13.0); MONOCYTES 1.8 %; MONOCYTES ABSOLUTE 0.05 10/3/uL (0.21-1.20); NEUTROPHILS 73.2 %; NEUTROPHILS ABSOLUTE 2.02 10/3/uL (2.02-8.40); PLATELET COUNT 122 10/3/uL (150-400); RBC DISTRIBUTION WIDTH 16.3 % (12.0-16.0); WHITE BLOOD CELLS 2.8 10/3/uL (4.5-10.5)
[2016-12-16 06:50] LABS: HEMATOCRIT 41.6 % (40.0-51.0); HEMOGLOBIN 13.3 g/dL (13.6-17.8); MEAN CORPUSCULAR VOLUME 95.6 fL (80-100); RED CELL COUNT 4.35 10/6/uL (4.7-6.1)
[2016-12-16 06:51] LABS: MANUAL DIFF NO %
[2016-12-16 06:59] LABS: INTERNATIONAL NORMAL RATI 1.1 UNITS (-); PARTIAL THROMBO TIME 31.6 SEC (22.5-37.2)
[2016-12-16 07:07] LABS: INFLUENZA A SCREEN NEGATIVE (NEGATIVE); INFLUENZA B SCREEN NEGATIVE (NEGATIVE)
[2016-12-16 07:11] LABS: LACTATE 2.3 MMOL/L (0.3-2.4)
[2016-12-16 08:46] LABS: A/G RATIO 0.5 (0.7-1.9); ALBUMIN 2.3 G/DL (3.5-5.0); CALCIUM, SERUM 7.6 MG/DL (8.5-10.4); CHLORIDE, SERUM 105 MMOL/L (96-112); CO2 (CARBON DIOXIDE) 24 MMOL/L (24-34); GLOBULIN 4.8 G/DL (2.5-4.1); SGOT(AST) 117 U/L (5-40); SGPT(ALT) 73 U/L (5-65); SODIUM, SERUM 140 MMOL/L (135-148); TOTAL BILIRUBIN 0.9 MG/DL (0-1.2); TOTAL PROTEIN 7.1 G/DL (6.0-8.5)
[2016-12-16 08:50] LABS: ALKALINE PHOSPHATASE 435 U/L (45-117); BUN (BLOOD UREA NITROGEN) 29 MG/DL (6-23); CREATININE 8.62 MG/DL (0.70-1.30); GFR AFRICAN AMERICAN 8 ML/MIN (>=60); GFR NON AFRICAN AMERICAN 7 ML/MIN (>=60); GLUCOSE, SERUM 124 MG/DL (60-99); POTASSIUM, SERUM 3.9 MMOL/L (3.5-5.3)
[2016-12-16 09:51] LABS: PROCALCITONIN 65.34 ng/mL (<0.5)
[2016-12-16] MEDS ORDERED: NEUR300 PO (10:18)
[2016-12-16] MEDS ORDERED: SEROQUEL25 PO (10:19)
[2016-12-16] MEDS ORDERED: KEPPRA500 PO (10:19)
[2016-12-16] MEDS ORDERED: PRILO PO (10:19)
[2016-12-16] MEDS ORDERED: AT25 PO (10:19)
[2016-12-16] MEDS ORDERED: AMB10 PO (10:20)
[2016-12-16] MEDS ORDERED: ROXICODONE30 MG PO (10:20)
[2016-12-16] MEDS ORDERED: LIPITOR40 PO (10:21)
[2016-12-16] MEDS ORDERED: FLEX PO (10:21)
[2016-12-16] MEDS ORDERED: ZOL50 PO (10:21)
[2016-12-16] MEDS ORDERED: X5 PO (10:21)
[2016-12-16] MEDS ORDERED: PR25 PO (10:22)
[2016-12-16] MEDS ORDERED: NOVOLOGMIX (10:22)
[2016-12-16 13:19] LABS: BE (BASE EXCESS) -4.1 MEQ/L (0 +/- 2.5); CARBOXYHEMOGLOBIN 2.2 % (0-3); DEVICE VM; HCO3 (ACTUAL BICARBONATE) 19.8 MEQ/L (23-27); HEMOBLOGIN CONTENT 12.1 G/DL (14-18); INSTRUMENT SERIAL # 8083; METHEMOGLOBIN 0.2 % (0-3); O2 CONTENT 15.2 VOL% (18-24); OPERATOR ID 35188; PCO2 (CO2 TENSION) 32 MMHG (35-45); PO2 (O2 TENSION) 61 MMHG (79-93); SAMPLE Arterial
[2016-12-16 14:20] LABS: ASCORBIC ACID (UR NOT ORDER) NEG (NEG); BILIRUBIN, URINE SMALL (NEG); KETONE, URINE TRACE MG/DL (NEG); LEUKOCYTE ESTERASE(NOT OR TRACE (NEG); WBC (NOT ORDERED) (RFLEX) 13 (0-5)
[2016-12-17 04:28] LABS: HEMOGLOBIN 10.8 g/dL (13.6-17.8); MEAN CORPUS HGB CONC 30.9 g/dL (32.0-36.0); MEAN CORPUSCULAR HEMOGLOB 29.8 pg (26.0-34.0); MEAN CORPUSCULAR VOLUME 96.4 fL (80-100); MEAN PLATELET VOLUME 12.4 fL (9.2-13.0); PLATELET COUNT 139 10/3/uL (150-400); RBC DISTRIBUTION WIDTH 15.9 % (12.0-16.0); RED CELL COUNT 3.62 10/6/uL (4.7-6.1)
[2016-12-17 04:29] LABS: HEMATOCRIT 34.9 % (40.0-51.0); MANUAL DIFF YES %; WHITE BLOOD CELLS 13.9 10/3/uL (4.5-10.5)
[2016-12-17 04:54] LABS: BAND NEUTROPHILS 16 %; LYMPHOCYTES 11 %; LYMPHOCYTES ABSOLUTE (CALC) 1.53 10/3/uL (0.67-4.30); MONOCYTES 3 %; MONOCYTES ABSOLUTE (CALC) 0.42 10/3/uL (0.21-1.20); NEUTROPHILS ABSOLUTE (CALC) 11.95 10/3/uL (2.02-8.40); PLATELET ESTIMATE ADQ (ADEQUATE); RBC MORPHOLOGY NORM (NORMAL); SEGMENTED NEUTROPHIL (0) 70 %; TOTAL NUCLEATED CELLS 100
[2016-12-17 04:55] LABS: ALBUMIN 2.3 G/DL (3.5-5.0); CALCIUM, SERUM 7.8 MG/DL (8.5-10.4); CHLORIDE, SERUM 105 MMOL/L (96-112); CO2 (CARBON DIOXIDE) 25 MMOL/L (24-34); SODIUM, SERUM 139 MMOL/L (135-148)
[2016-12-17 05:01] LABS: BUN (BLOOD UREA NITROGEN) 42 MG/DL (6-23); CREATININE 9.78 MG/DL (0.70-1.30); GFR AFRICAN AMERICAN 7 ML/MIN (>=60); GFR NON AFRICAN AMERICAN 6 ML/MIN (>=60); GLUCOSE, SERUM 169 MG/DL (60-99); PHOSPHORUS, SERUM 2.5 MG/DL (2.5-4.5); POTASSIUM, SERUM 5.6 MMOL/L (3.5-5.3)
[2016-12-18 09:58] LABS: BASOPHILS 0.3 %; BASOPHILS ABSOLUTE 0.03 10/3/uL (0.0-0.16); EOSINOPHILS 5.2 %; HEMATOCRIT 34.1 % (40.0-51.0); HEMOGLOBIN 10.9 g/dL (13.6-17.8); IMMATURE GRANULOCYTES 0.3 %; IMMATURE GRANULOCYTES ABSOLUTE 0.03 10/3/uL (0.0-0.11); LYMPHOCYTES 17.2 %; LYMPHOCYTES ABSOLUTE 1.97 10/3/uL (0.67-4.30); MANUAL DIFF NO %; MEAN CORPUSCULAR HEMOGLOB 29.9 pg (26.0-34.0); MEAN CORPUSCULAR VOLUME 93.4 fL (80-100); MEAN PLATELET VOLUME 11.5 fL (9.2-13.0); MONOCYTES ABSOLUTE 0.69 10/3/uL (0.21-1.20); NEUTROPHILS ABSOLUTE 8.13 10/3/uL (2.02-8.40); PLATELET COUNT 161 10/3/uL (150-400); RBC DISTRIBUTION WIDTH 15.4 % (12.0-16.0); RED CELL COUNT 3.65 10/6/uL (4.7-6.1); WHITE BLOOD CELLS 11.5 10/3/uL (4.5-10.5)
[2016-12-18 10:17] LABS: ALBUMIN 2.6 G/DL (3.5-5.0); CALCIUM, SERUM 8.1 MG/DL (8.5-10.4); CHLORIDE, SERUM 105 MMOL/L (96-112); CO2 (CARBON DIOXIDE) 26 MMOL/L (24-34); GFR AFRICAN AMERICAN 10 ML/MIN (>=60); GFR NON AFRICAN AMERICAN 9 ML/MIN (>=60); GLUCOSE, SERUM 145 MG/DL (60-99); PHOSPHORUS, SERUM 2.2 MG/DL (2.5-4.5); POTASSIUM, SERUM 5.2 MMOL/L (3.5-5.3); SODIUM, SERUM 139 MMOL/L (135-148)
[2016-12-18 10:18] LABS: BUN (BLOOD UREA NITROGEN) 29 MG/DL (6-23); CREATININE 6.84 MG/DL (0.70-1.30)
[2016-12-19 20:17] LABS: BASOPHILS 0.7 %; BASOPHILS ABSOLUTE 0.04 10/3/uL (0.0-0.16); EOSINOPHILS ABSOLUTE 0.59 10/3/uL (0.0-0.53); HEMATOCRIT 32.8 % (40.0-51.0); HEMOGLOBIN 10.2 g/dL (13.6-17.8); IMMATURE GRANULOCYTES 0.2 %; IMMATURE GRANULOCYTES ABSOLUTE 0.01 10/3/uL (0.0-0.11); LYMPHOCYTES 32.4 %; LYMPHOCYTES ABSOLUTE 1.73 10/3/uL (0.67-4.30); MEAN CORPUS HGB CONC 31.1 g/dL (32.0-36.0); MEAN CORPUSCULAR HEMOGLOB 29.9 pg (26.0-34.0); MEAN CORPUSCULAR VOLUME 96.2 fL (80-100); MEAN PLATELET VOLUME 11.1 fL (9.2-13.0); MONOCYTES 9.9 %; MONOCYTES ABSOLUTE 0.53 10/3/uL (0.21-1.20); NEUTROPHILS 45.8 %; NEUTROPHILS ABSOLUTE 2.44 10/3/uL (2.02-8.40); PLATELET COUNT 196 10/3/uL (150-400); RBC DISTRIBUTION WIDTH 15.6 % (12.0-16.0); RED CELL COUNT 3.41 10/6/uL (4.7-6.1)
[2016-12-19 20:18] LABS: MANUAL DIFF NO %; WHITE BLOOD CELLS 5.3 10/3/uL (4.5-10.5)
[2016-12-19 20:34] LABS: A/G RATIO 0.5 (0.7-1.9); ALBUMIN 2.7 G/DL (3.5-5.0); ALKALINE PHOSPHATASE 190 U/L (45-117); BUN (BLOOD UREA NITROGEN) 34 MG/DL (6-23); CALCIUM, SERUM 8.3 MG/DL (8.5-10.4); CHLORIDE, SERUM 105 MMOL/L (96-112); CO2 (CARBON DIOXIDE) 26 MMOL/L (24-34); CREATININE 8.54 MG/DL (0.70-1.30); GFR AFRICAN AMERICAN 8 ML/MIN (>=60); GFR NON AFRICAN AMERICAN 7 ML/MIN (>=60); GLOBULIN 5.6 G/DL (2.5-4.1); GLUCOSE, SERUM 116 MG/DL (60-99); PHOSPHORUS, SERUM 4.1 MG/DL (2.5-4.5); POTASSIUM, SERUM 5.6 MMOL/L (3.5-5.3); SGOT(AST) 25 U/L (5-40); SGPT(ALT) 33 U/L (5-65); SODIUM, SERUM 140 MMOL/L (135-148); TOTAL BILIRUBIN 0.4 MG/DL (0-1.2); TOTAL PROTEIN 8.3 G/DL (6.0-8.5)
[2016-12-20 08:35] LABS: BASOPHILS 0.9 %; BASOPHILS ABSOLUTE 0.05 10/3/uL (0.0-0.16); EOSINOPHILS 10.2 %; EOSINOPHILS ABSOLUTE 0.55 10/3/uL (0.0-0.53); HEMATOCRIT 32.9 % (40.0-51.0); HEMOGLOBIN 10.4 g/dL (13.6-17.8); IMMATURE GRANULOCYTES 0.9 %; IMMATURE GRANULOCYTES ABSOLUTE 0.05 10/3/uL (0.0-0.11); LYMPHOCYTES 35.3 %; LYMPHOCYTES ABSOLUTE 1.91 10/3/uL (0.67-4.30); MEAN CORPUS HGB CONC 31.6 g/dL (32.0-36.0); MEAN CORPUSCULAR HEMOGLOB 30.2 pg (26.0-34.0); MEAN CORPUSCULAR VOLUME 95.6 fL (80-100); MONOCYTES 9.1 %; MONOCYTES ABSOLUTE 0.49 10/3/uL (0.21-1.20); NEUTROPHILS 43.6 %; NEUTROPHILS ABSOLUTE 2.36 10/3/uL (2.02-8.40); PLATELET COUNT 190 10/3/uL (150-400); RBC DISTRIBUTION WIDTH 15.2 % (12.0-16.0); RED CELL COUNT 3.44 10/6/uL (4.7-6.1); WHITE BLOOD CELLS 5.4 10/3/uL (4.5-10.5)
[2016-12-20 08:36] LABS: MANUAL DIFF NO %
[2016-12-20 08:41] LABS: ALBUMIN 2.5 G/DL (3.5-5.0); BUN (BLOOD UREA NITROGEN) 36 MG/DL (6-23); CHLORIDE, SERUM 109 MMOL/L (96-112); CO2 (CARBON DIOXIDE) 25 MMOL/L (24-34); CREATININE 9.03 MG/DL (0.70-1.30); GFR AFRICAN AMERICAN 7 ML/MIN (>=60); GFR NON AFRICAN AMERICAN 6 ML/MIN (>=60); GLUCOSE, SERUM 135 MG/DL (60-99); PHOSPHORUS, SERUM 4.5 MG/DL (2.5-4.5); POTASSIUM, SERUM 5.6 MMOL/L (3.5-5.3); SODIUM, SERUM 142 MMOL/L (135-148)
[2016-12-20] MEDS ORDERED: CIP7 PO (09:09)
[2016-12-20] MEDS ORDERED: NORV10 PO (10:43)
== END 2016-12-20 13:40 | disposition home or self-care (01) | DRG 871 ==
LOC: ER 06:41 → MIC 09:33 → 2SO 12-18 10:43
PROVIDERS: Emergency Medicine; Internal Medicine Nephrology; Nurse Practitioner; Registered Nurse
PROC: 02HV33Z Insertion of Infusion Device into Superior Vena Cava, Percutaneous Approach (ICD-10-PCS; principal; 2016-12-16)
PROC: 4A02X4A Measurement of Cardiac Electrical Activity, Guidance, External Approach (ICD-10-PCS; 2016-12-16)
DX: A41.9 Sepsis, unspecified organism (principal); N18.6 End stage renal disease; R65.21 Severe sepsis with septic shock; E46 Unspecified protein-calorie malnutrition; I12.0 Hypertensive chronic kidney disease with stage 5 chronic kidney disease or end stage renal disease; E11.22 Type 2 diabetes mellitus with diabetic chronic kidney disease; I25.5 Ischemic cardiomyopathy; F19.10 Other psychoactive substance abuse, uncomplicated; I25.10 Atherosclerotic heart disease of native coronary artery without angina pectoris; M54.5 Low back pain; Z99.2 Dependence on renal dialysis; Z79.4 Long term (current) use of insulin; Z95.0 Presence of cardiac pacemaker; Z91.013 Allergy to seafood; Z88.5 Allergy status to narcotic agent; Z86.73 Personal history of transient ischemic attack (TIA), and cerebral infarction without residual deficits; Z86.74 Personal history of sudden cardiac arrest
CPT/HCPCS: 36569; 36600; 71010; 72125; 72131; 72192; 78806; 80053; 80069; 80202; 81001; 82805; 82962; 83605; 83735; 84145; 85025; 85610; 85730; 87040; 87641; 87804; 93005; 96374; 96375; 97161-GP; 99291; 99292; A9270-GY; A9569; C1751; G0257; G8978-CJ-GP; G8979-CJ-GP; G8980-CI-GP; J2543; J3370

== ENCOUNTER 2016-12-23 23:41 | Inpatient (IN) | payer MEDICARE ==
--- NOTE | ~2016-12-23 | HP ---
History And Physical [place] [id number] [facility] [place]. [address] NAME: MILO KRAMER III : 68 STATUS : ADM IN PAT#: [id number] AGE: 46 ADM/REG DATE : 12/24/16 MR#: [id number] REPORT SERV DATE: 12/24/16 DICTATED BY: BRADEN LOPEZ DATE: 12/24/16 REPORT STATUS : Draft TRANSCRIBED BY: MODL DATE: 12/24/16 DATE OF ADMISSION: 12/24/2016 REASON FOR ADMISSION: Fever and pending septic shock. ASSESSMENT: The patient with just recent discharge last week after admission for recurrent episode of fever and sepsis. This time presenting with a temperature of 102 at home with rigors and chills, in the ER noted to be hypotensive. Blood pressure was 80s over 50s. He had a right femoral central line placed, required to be placed on Levophed and hydrated. Blood cultures were repeated and he was empirically placed on vancomycin, Zosyn, and Flagyl. Subsequently, in addition his procalcitonin level was in the 60s and white count [id number]. A CT scan of the abdomen and pelvis was unrevealing. Now in the CCU, he has fully recovered. Blood pressure is now running in the 160/71, heart rates in the 90s and afebrile. PLAN: Therefore is, 1. Transfer him out of the CCU. 2. Remove the central line. 3. He has already been seen by ID. The patient with recurrent admissions for these episodes because of the fever at this time and high white count, unclear, workup has been ordered, and currently on empiric antibiotics pending further evaluation of his blood cultures. His next hemodialysis will be tomorrow in the left upper arm AV fistula. He is a diabetic, we will place him on sliding scale insulin, and will subsequently follow up. HISTORY OF PRESENT ILLNESS: He is a 46-year-old male, well known to our service. He has end stage renal failure with diabetes, hypertension, nonischemic cardiomyopathy with an AICD. His last admission here was on 12/16/2016, when he was admitted from [facility], where he says the only time he ever tried it, he actually injected himself with tap water and hydrocodone, and he was found obtunded having a seizure, and then transferred over to [facility] where he was then stayed here until he was discharged last week. Apparently, he was placed on ciprofloxacin, for which he was supposed to take 750 mg every 24 hours, but he was missing, he did not take it on the days he was not at dialysis, he says he forgot to take them. He was well until yesterday evening when he woke up at above 05:00 p.m., developed temperature of 102 with rigors and chills and EMS was called by his parents whom he lives with, and he was transferred to the hospital, where he was found to be profoundly hypotensive, and then he is noted to have a white count of 24,000, and his procalcitonin was noted to be in the 60s. CT scan of abdomen and pelvis shows essentially no clear-cut cause for his fever, but he does have fixation bars L4-S1 with disc space narrowing and erosive changes at L4-L5, but no evidence of a perispinal fluid collection or an abscess. He has an extensive history of having had multiple admissions to the hospital dating back to 02/2016. He had strep bacteremia at that time, I and D to his shoulder. He has undergone in July laminectomy to L4-S1. October, again as indicated he was admitted with question of septic shock and seizures, and then again these admissions as indicated just on 12/16/2016. His past Medical history therefore includes spinal osteomyelitis, lower back surgery and laminectomy as indicated, seizure disorder, type 2 diabetes, AICD with ischemic cardiomyopathy, ejection fraction noted to be in the 20s, and most recently up to History And Physical [address] [address] NAME: MILO KRAMER III : 68 STATUS : ADM IN PAT#: [id number] AGE: 46 ADM/REG DATE : 12/24/16 MR#: [id number] REPORT SERV DATE: 12/24/16 DICTATED BY: BRADEN LOPEZ DATE: 12/24/16 REPORT STATUS : Draft TRANSCRIBED BY: REED DATE: 12/24/16 40% in 02/2016. He has an AICD, obviously IV and polysubstance abuse as noted, history of CVA, hypertension, coronary artery disease. He has undergone debridement and irrigation of his right shoulder back in 2015, AV graft in his left upper arm. SOCIAL HISTORY: Lives with his parents at this time. He was kicked out of [facility], when he was noted doing the IV drug abuse there. MEDICATIONS: He is on home medications including currently, Flexeril which are not resuming, Neurontin, Atarax which are not resuming, Keppra, Adalat, Prilosec, Roxicodone 60 mg every eight hours, Phenergan, Xanax, Cordarone, Norvasc, Lipitor, PhosLo, Coreg, Cipro, Seroquel, Zoloft, Demadex, and Ambien. REVIEW OF SYSTEMS: System review is as per the HPI. PHYSICAL EXAMINATION: GENERAL: He is awake, alert. VITAL SIGNS: Blood pressure is now 120/70, heart rate in the 90s, afebrile. HEENT: Pupils are reacting to light. He is not pale or jaundiced. Oral mucosa is moist. No pharyngitis. NECK: Supple. No thyromegaly. Left upper arm AV grafts noted. Positive thrill. No evidence of erythema at this time. HEART: Heart sounds 1 and 2 are heard, they are not distant. No rub heard. CHEST: Clear to auscultation. ABDOMEN: Mild distention. No hepatosplenomegaly. No tenderness, guarding, or rebound. Bowel sounds normal. Low back surgical scar is noted, but there is no spinal air tenderness or fluid collection. EXTREMITIES: He has no peripheral edema. NEURO: Muscle bulk and tone are reduced, but no focal neurological symptoms. Power is normal 3 to 4/5. SKIN: No skin rash reported and no loss of skin turgor. LABORATORY WORKUP: Includes sodium 139, potassium 5.0, chloride 104, CO2 of 25, BUN 33, creatinine 10.3, calcium is 8.2, albumin 2.5. Hemoglobin is 10.7, hematocrit 34.0, white count is 24.3, platelet count 149,000. CT scan of abdomen and pelvis as described. EKG shows left atrial enlargement inferior infarct, age undetermined, and prolonged QT interval. MG/MODL Braden Lopez M.D. / [id number] CC: History And Physical [address] [place] [address] NAME: MILO KRAMER III : 68 STATUS : ADM IN [facility]#: [id number] AGE: 46 ADM/REG DATE : 12/24/16 MR#: [id number] REPORT SERV DATE: 12/24/16 DICTATED BY: BRADEN LOPEZ DATE: 12/24/16 REPORT STATUS : Draft TRANSCRIBED BY: MODL DATE: 12/24/16 Lionel Cheatham M.D.
--- NOTE | ~2016-12-23 | DS ---
Discharge Summary [facility] [address] [place]. [address] NAME: MILO KRAMER III : 68 STATUS : DIS IN PAT#: [id number] AGE: 46 ADM/REG DATE : 12/24/16 MR#: [id number] REPORT SERV DATE: 01/19/17 DICTATED BY: BOLA BANDA DATE: 01/19/17 REPORT STATUS : Draft TRANSCRIBED BY: MODTuyet DATE: 01/19/17 Data Collection from hospitalization DISCHARGE DIAGNOSES: 1. Fever. 2. End-stage renal disease. 3. Right upper arm arteriovenous fistula. 4. Hypertension. 5. Type 2 diabetes mellitus. 6. Nonischemic cardiomyopathy with automatic implantable cardioverter defibrillator. 7. History of cerebrovascular accident. 8. Substance abuse. 9. Depression. 10.Panic disorder. CONSULTATIONS: Tex Bynum M.D. PROCEDURES PERFORMED: CT scan of the abdomen and pelvis without contrast on 12/24/2016. MEDICATIONS: Cordarone 200 mg daily, Norvasc 10 mg daily, Lipitor 40 mg at bedtime, PhosLo two tablets three times a day with meals, Coreg 25 mg twice a day, Neurontin 300 mg at bedtime, Atarax 25 mg twice a day as needed, Keppra 500 mg twice a day, Adalat CC 60 mg twice a day, Prilosec 20 mg daily as needed, Zoloft 50 mg daily, and Demadex 20 mg daily. CONDITION AT DISCHARGE: Stable. DISPOSITION: The patient was discharged home on a renal-diabetic diet with activities as instructed. He would follow up for dialysis on Mondays, Wednesdays, and Fridays. He would follow up with his primary care physician as instructed. HOSPITAL COURSE: This is a 46-year-old man who was recently discharged the week prior to this admission after an admission for recurrent episode of fever and sepsis. At this time, he presented with a temperature of 102 with rigors and chills. In the emergency room, he was found to be hypotensive. His blood pressure was in the 80s over 50s. He had a right femoral central line placed. He required placement on Levophed and was hydrated. Blood cultures were repeated. He was empirically placed on vancomycin, Zosyn, and Flagyl. Calcitonin level was in the 60s. White count was 23,000. A CT scan of the abdomen and pelvis was unrevealing. He was admitted to the hospital at this time for further evaluation and treatment. Upon admission, his creatinine level was 10.3. EKG showed left atrial enlargement, inferior infarct, age undetermined, and prolonged QT interval. He was seen by Dr. Tex Bynum. The patient said he has had no self injections. Vancomycin and Flagyl were going to be discontinued. Zosyn was continued for now. We were going to check cortisol level. The following day, he felt well. Blood cultures were negative at this time. The patient does have a history of self injections in the past. Vancomycin had been stopped. Zosyn was continued. White count was 24.3. On 12/26/2016, he felt well. He had no new complaints. His lungs were clear. Blood cultures remained negative. Over the next couple of days, he Discharge Summary [address] [place]. [address] NAME: MILO KRAMER III : 68 STATUS : DIS IN PAT#: [id number] AGE: 46 ADM/REG DATE : 12/24/16 MR#: [id number] REPORT SERV DATE: 01/19/17 DICTATED BY: BOLA BANDA DATE: 01/19/17 REPORT STATUS : Draft TRANSCRIBED BY: MODL DATE: 01/19/17 continued to feel well. He was afebrile. White count was decreasing. Zosyn was continued. Discharge planning was performed. On 12/28/2016, he had no new symptoms. He remained afebrile. His blood cultures remained negative. It was recommended that the patient get help for substance abuse. He declined. He said he did not think he has a problem. Discharge instructions were given. Due to his improved and stable condition, he was discharged home with the above-stated instructions. Information collected by: Makayla Russo I submit the above information as my discharge summary. NATHAN/REED Bola Banda M.D. / [id number] CC: Lionel Cheatham M.D. Paul Cornea, M.D.
[~2016-12-23 23:41] MED LIST changes: +CIP7 PO; +NOVOLOGMIX
[2016-12-24 01:14] LABS: BASOPHILS 0.1 %; BASOPHILS ABSOLUTE 0.02 10/3/uL (0.0-0.16); EOSINOPHILS 0.2 %; EOSINOPHILS ABSOLUTE 0.06 10/3/uL (0.0-0.53); ER CBC TAT 0 Hrs 05 Mins; HEMOGLOBIN 10.7 g/dL (13.6-17.8); IMMATURE GRANULOCYTES 0.7 %; IMMATURE GRANULOCYTES ABSOLUTE 0.18 10/3/uL (0.0-0.11); LYMPHOCYTES 3.5 %; LYMPHOCYTES ABSOLUTE 0.86 10/3/uL (0.67-4.30); MANUAL DIFF NO %; MEAN CORPUS HGB CONC 31.5 g/dL (32.0-36.0); MEAN CORPUSCULAR HEMOGLOB 30.3 pg (26.0-34.0); MEAN CORPUSCULAR VOLUME 96.3 fL (80-100); MONOCYTES 2.6 %; MONOCYTES ABSOLUTE 0.62 10/3/uL (0.21-1.20); NEUTROPHILS 92.9 %; NEUTROPHILS ABSOLUTE 22.54 10/3/uL (2.02-8.40); PLATELET COUNT 149 10/3/uL (150-400); RED CELL COUNT 3.53 10/6/uL (4.7-6.1); WHITE BLOOD CELLS 24.3 10/3/uL (4.5-10.5)
[2016-12-24 01:20] LABS: INTERNATIONAL NORMAL RATI 1.4 UNITS (-)
[2016-12-24 01:21] LABS: PARTIAL THROMBO TIME 37.7 SEC (22.5-37.2)
[2016-12-24 01:29] LABS: A/G RATIO 0.5 (0.7-1.9); ALBUMIN 2.5 G/DL (3.5-5.0); ALKALINE PHOSPHATASE 377 U/L (45-117); BUN (BLOOD UREA NITROGEN) 31 MG/DL (6-23); CALCIUM, SERUM 7.9 MG/DL (8.5-10.4); CHLORIDE, SERUM 101 MMOL/L (96-112); CO2 (CARBON DIOXIDE) 27 MMOL/L (24-34); GFR AFRICAN AMERICAN 6 ML/MIN (>=60); GFR NON AFRICAN AMERICAN 5 ML/MIN (>=60); GLUCOSE, SERUM 154 MG/DL (60-99); POTASSIUM, SERUM 5.1 MMOL/L (3.5-5.3); PROTIME (NOT ORD) 17.4 SEC (12.0-14.5); SGOT(AST) 43 U/L (5-40); SGPT(ALT) 37 U/L (5-65); SODIUM, SERUM 135 MMOL/L (135-148); TOTAL BILIRUBIN 0.5 MG/DL (0-1.2); TOTAL PROTEIN 7.5 G/DL (6.0-8.5)
[2016-12-24 01:30] LABS: LACTATE 2.8 MMOL/L (0.3-2.4)
[2016-12-24 01:41] LABS: BAND NEUTROPHILS 10 %; EOSINOPHILS 2 %; EOSINOPHILS ABSOLUTE (CALC) 0.49 10/3/uL (0.0-0.53); ER DIFF TAT 0 Hrs 32 Mins; LYMPHOCYTES 5 %; LYMPHOCYTES ABSOLUTE (CALC) 1.22 10/3/uL (0.67-4.30); MONOCYTES 5 %; MONOCYTES ABSOLUTE (CALC) 1.22 10/3/uL (0.21-1.20); NEUTROPHILS ABSOLUTE (CALC) 21.38 10/3/uL (2.02-8.40); PLATELET ESTIMATE ADQ (ADEQUATE); SEGMENTED NEUTROPHIL (0) 78 %; TOTAL NUCLEATED CELLS 100
[2016-12-24 01:42] LABS: ANISOCYTOSIS 1+ (5-10/OIF) (0-5/OIF); RBC MORPHOLOGY ABN (NORMAL)
[2016-12-24 02:19] LABS: PROCALCITONIN 66.26 ng/mL (<0.5)
[2016-12-24] MEDS ORDERED: PHOSLO PO (03:12)
[2016-12-24] MEDS ORDERED: DEMA20 PO (03:14)
[2016-12-24] MEDS ORDERED: COREG25 PO (03:20)
[2016-12-24] MEDS ORDERED: CORDARONE PO (03:21)
[2016-12-24] MEDS ORDERED: ADALAT CC60 MG PO (03:23)
[2016-12-24 11:21] LABS: BUN (BLOOD UREA NITROGEN) 33 MG/DL (6-23); CALCIUM, SERUM 8.2 MG/DL (8.5-10.4); CHLORIDE, SERUM 104 MMOL/L (96-112); CO2 (CARBON DIOXIDE) 25 MMOL/L (24-34); GFR AFRICAN AMERICAN 6 ML/MIN (>=60); GFR NON AFRICAN AMERICAN 5 ML/MIN (>=60); GLUCOSE, SERUM 137 MG/DL (60-99); SODIUM, SERUM 139 MMOL/L (135-148)
[2016-12-25 05:23] LABS: ALBUMIN 2.4 G/DL (3.5-5.0); CHLORIDE, SERUM 105 MMOL/L (96-112); CO2 (CARBON DIOXIDE) 25 MMOL/L (24-34); GLUCOSE, SERUM 162 MG/DL (60-99); IMMUNOGLOBULIN G 1750 MG/DL (673-1464); IMMUNOGLOBULIN M 252 MG/DL (30-270); PHOSPHORUS, SERUM 5.1 MG/DL (2.5-4.5); POTASSIUM, SERUM 5.5 MMOL/L (3.5-5.3); SGOT(AST) 42 U/L (5-40); SGPT(ALT) 33 U/L (5-65); SODIUM, SERUM 138 MMOL/L (135-148); TOTAL BILIRUBIN 0.4 MG/DL (0-1.2); TOTAL PROTEIN 7.4 G/DL (6.0-8.5)
[2016-12-25 05:32] LABS: ALKALINE PHOSPHATASE 219 U/L (45-117); BUN (BLOOD UREA NITROGEN) 45 MG/DL (6-23); DIRECT BILIRUBIN 0.1 MG/DL (0.0-0.4); GFR AFRICAN AMERICAN 6 ML/MIN (>=60); GFR NON AFRICAN AMERICAN 5 ML/MIN (>=60); INDIRECT BILIRUBIN(NOT ORDER) 0.3 MG/DL (0.1-0.9)
[2016-12-25 06:23] LABS: PROCALCITONIN 81.08 ng/mL (<0.5)
[2016-12-25 10:57] LABS: ANA TITER <1:40 TITER
[2016-12-26 05:47] LABS: ALBUMIN 2.6 G/DL (3.5-5.0); CALCIUM, SERUM 8.5 MG/DL (8.5-10.4); CHLORIDE, SERUM 106 MMOL/L (96-112); CO2 (CARBON DIOXIDE) 27 MMOL/L (24-34); PHOSPHORUS, SERUM 4.6 MG/DL (2.5-4.5); SODIUM, SERUM 142 MMOL/L (135-148)
[2016-12-26 05:49] LABS: BUN (BLOOD UREA NITROGEN) 27 MG/DL (6-23); CREATININE 8.15 MG/DL (0.70-1.30); GFR AFRICAN AMERICAN 8 ML/MIN (>=60); GFR NON AFRICAN AMERICAN 7 ML/MIN (>=60); GLUCOSE, SERUM 82 MG/DL (60-99)
[2016-12-27 06:30] LABS: BASOPHILS 0.3 %; BASOPHILS ABSOLUTE 0.02 10/3/uL (0.0-0.16); EOSINOPHILS 11.9 %; EOSINOPHILS ABSOLUTE 0.84 10/3/uL (0.0-0.53); HEMATOCRIT 33.5 % (40.0-51.0); HEMOGLOBIN 10.6 g/dL (13.6-17.8); IMMATURE GRANULOCYTES 0.1 %; IMMATURE GRANULOCYTES ABSOLUTE 0.01 10/3/uL (0.0-0.11); LYMPHOCYTES 27.8 %; LYMPHOCYTES ABSOLUTE 1.96 10/3/uL (0.67-4.30); MANUAL DIFF NO %; MEAN CORPUS HGB CONC 31.6 g/dL (32.0-36.0); MEAN CORPUSCULAR HEMOGLOB 30.3 pg (26.0-34.0); MEAN CORPUSCULAR VOLUME 95.7 fL (80-100); MEAN PLATELET VOLUME 11.4 fL (9.2-13.0); MONOCYTES 5.1 %; MONOCYTES ABSOLUTE 0.36 10/3/uL (0.21-1.20); NEUTROPHILS 54.8 %; NEUTROPHILS ABSOLUTE 3.87 10/3/uL (2.02-8.40); PLATELET COUNT 153 10/3/uL (150-400); RBC DISTRIBUTION WIDTH 15.8 % (12.0-16.0); WHITE BLOOD CELLS 7.1 10/3/uL (4.5-10.5)
[2016-12-27 07:04] LABS: PROCALCITONIN 61.89 ng/mL (<0.5)
[2016-12-27 17:31] LABS: ALBUMIN 2.7 G/DL (3.5-5.0); CALCIUM, SERUM 8.8 MG/DL (8.5-10.4); CHLORIDE, SERUM 108 MMOL/L (96-112); CO2 (CARBON DIOXIDE) 23 MMOL/L (24-34); GFR AFRICAN AMERICAN 7 ML/MIN (>=60); GFR NON AFRICAN AMERICAN 6 ML/MIN (>=60); GLUCOSE, SERUM 77 MG/DL (60-99); POTASSIUM, SERUM 5.1 MMOL/L (3.5-5.3); SODIUM, SERUM 143 MMOL/L (135-148)
[2016-12-27 17:32] LABS: BUN (BLOOD UREA NITROGEN) 35 MG/DL (6-23); CREATININE 9.02 MG/DL (0.70-1.30)
[2016-12-28 09:51] LABS: BASOPHILS 0.7 %; BASOPHILS ABSOLUTE 0.04 10/3/uL (0.0-0.16); EOSINOPHILS 10.4 %; EOSINOPHILS ABSOLUTE 0.64 10/3/uL (0.0-0.53); HEMATOCRIT 34.2 % (40.0-51.0); IMMATURE GRANULOCYTES 0.3 %; IMMATURE GRANULOCYTES ABSOLUTE 0.02 10/3/uL (0.0-0.11); LYMPHOCYTES 30.1 %; LYMPHOCYTES ABSOLUTE 1.85 10/3/uL (0.67-4.30); MANUAL DIFF NO %; MEAN CORPUS HGB CONC 32.2 g/dL (32.0-36.0); MEAN CORPUSCULAR HEMOGLOB 30.4 pg (26.0-34.0); MEAN CORPUSCULAR VOLUME 94.5 fL (80-100); MEAN PLATELET VOLUME 11.4 fL (9.2-13.0); MONOCYTES 7.3 %; MONOCYTES ABSOLUTE 0.45 10/3/uL (0.21-1.20); NEUTROPHILS 51.2 %; NEUTROPHILS ABSOLUTE 3.14 10/3/uL (2.02-8.40); PLATELET COUNT 166 10/3/uL (150-400); RBC DISTRIBUTION WIDTH 15.4 % (12.0-16.0); RED CELL COUNT 3.62 10/6/uL (4.7-6.1); WHITE BLOOD CELLS 6.1 10/3/uL (4.5-10.5)
[2016-12-28 10:07] LABS: ALBUMIN 2.8 G/DL (3.5-5.0); BUN (BLOOD UREA NITROGEN) 40 MG/DL (6-23); CALCIUM, SERUM 8.7 MG/DL (8.5-10.4); CHLORIDE, SERUM 108 MMOL/L (96-112); CO2 (CARBON DIOXIDE) 28 MMOL/L (24-34); GFR AFRICAN AMERICAN 7 ML/MIN (>=60); GFR NON AFRICAN AMERICAN 6 ML/MIN (>=60); GLUCOSE, SERUM 107 MG/DL (60-99); PHOSPHORUS, SERUM 3.9 MG/DL (2.5-4.5); POTASSIUM, SERUM 5.4 MMOL/L (3.5-5.3); SODIUM, SERUM 143 MMOL/L (135-148)
== END 2016-12-28 16:30 | disposition home or self-care (01) | DRG 314 ==
LOC: ER 23:41 → CCU 12-24 03:25 → 4SO 12-25 14:09
PROVIDERS: Internal Medicine Infectious Disease; Internal Medicine Nephrology; Specialist
PROC: 06HM33Z Insertion of Infusion Device into Right Femoral Vein, Percutaneous Approach (ICD-10-PCS; principal; 2016-12-24)
PROC: 5A1D60Z (ICD-10-PCS; 2016-12-25)
DX: I95.89 Other hypotension (principal); N18.6 End stage renal disease; I12.0 Hypertensive chronic kidney disease with stage 5 chronic kidney disease or end stage renal disease; I42.8 Other cardiomyopathies; E11.22 Type 2 diabetes mellitus with diabetic chronic kidney disease; T36.8X6A Underdosing of other systemic antibiotics, initial encounter; Z91.138 Patient's unintentional underdosing of medication regimen for other reason; Y92.009 Unspecified place in unspecified non-institutional (private) residence as the place of occurrence of the external cause; G40.909 Epilepsy, unspecified, not intractable, without status epilepticus; Z95.810 Presence of automatic (implantable) cardiac defibrillator; I25.10 Atherosclerotic heart disease of native coronary artery without angina pectoris; Z99.2 Dependence on renal dialysis; Z86.73 Personal history of transient ischemic attack (TIA), and cerebral infarction without residual deficits; F11.21 Opioid dependence, in remission; G89.29 Other chronic pain; M54.5 Low back pain; R50.81 Fever presenting with conditions classified elsewhere
CPT/HCPCS: 71010; 73090-RT; 74176; 80048; 80053; 80069; 80076; 80202; 81001; 82533; 82784; 82962; 83605; 83690; 83735; 84145; 85025; 85610; 85730; 86039; 86592; 87040; 87389; 87493; 87493-59; 87641; 93005; 96374; 96375; 97161-GP; 99291; A9270-GY; G0257; G8978-CJ-GP; G8979-CI-GP; J0885; J2543; J3370; P9047

== ENCOUNTER 2016-12-28 23:28 | Emergency (ER) | payer MEDICARE ==
[2016-12-29 01:24] LABS: CALCIUM, SERUM 8.3 MG/DL (8.5-10.4); CHLORIDE, SERUM 108 MMOL/L (96-112); CO2 (CARBON DIOXIDE) 26 MMOL/L (24-34); SODIUM, SERUM 142 MMOL/L (135-148)
[2016-12-29 01:25] LABS: BUN (BLOOD UREA NITROGEN) 30 MG/DL (6-23); CREATININE 7.49 MG/DL (0.70-1.30); GFR AFRICAN AMERICAN 9 ML/MIN (>=60); GFR NON AFRICAN AMERICAN 8 ML/MIN (>=60); GLUCOSE, SERUM 214 MG/DL (60-99); POTASSIUM, SERUM 4.4 MMOL/L (3.5-5.3)
[2016-12-29 01:49] LABS: BASOPHILS 0.1 %; BASOPHILS ABSOLUTE 0.01 10/3/uL (0.0-0.16); EOSINOPHILS 1.8 %; EOSINOPHILS ABSOLUTE 0.16 10/3/uL (0.0-0.53); HEMATOCRIT 34.5 % (40.0-51.0); HEMOGLOBIN 10.8 g/dL (13.6-17.8); IMMATURE GRANULOCYTES 0.3 %; IMMATURE GRANULOCYTES ABSOLUTE 0.03 10/3/uL (0.0-0.11); LYMPHOCYTES 2.5 %; LYMPHOCYTES ABSOLUTE 0.23 10/3/uL (0.67-4.30); MEAN CORPUS HGB CONC 31.3 g/dL (32.0-36.0); MEAN CORPUSCULAR HEMOGLOB 29.9 pg (26.0-34.0); MEAN CORPUSCULAR VOLUME 95.6 fL (80-100); MEAN PLATELET VOLUME 11.6 fL (9.2-13.0); MONOCYTES 0.7 %; MONOCYTES ABSOLUTE 0.06 10/3/uL (0.21-1.20); NEUTROPHILS 94.6 %; NEUTROPHILS ABSOLUTE 8.63 10/3/uL (2.02-8.40); PLATELET COUNT 132 10/3/uL (150-400); RBC DISTRIBUTION WIDTH 15.4 % (12.0-16.0); RED CELL COUNT 3.61 10/6/uL (4.7-6.1)
[2016-12-29 01:51] LABS: MANUAL DIFF NO %; WHITE BLOOD CELLS 9.1 10/3/uL (4.5-10.5)
== END 2016-12-29 02:24 | disposition home or self-care (01) ==
LOC: ER 23:28
PROVIDERS: Specialist
DX: E11.40 Type 2 diabetes mellitus with diabetic neuropathy, unspecified (principal); M79.605 Pain in left leg; E11.22 Type 2 diabetes mellitus with diabetic chronic kidney disease; I12.0 Hypertensive chronic kidney disease with stage 5 chronic kidney disease or end stage renal disease; N18.6 End stage renal disease; Z91.013 Allergy to seafood; Z79.899 Other long term (current) drug therapy
CPT/HCPCS: 80048; 85025; 96372; 99284; J1170; J2405

== ENCOUNTER 2017-01-03 20:31 | Inpatient (IN) | payer MEDICARE ==
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
--- NOTE | ~2017-01-03 | DS ---
Discharge Summary [facility] [address] [place]. [address] NAME: MILO KRAMER III : 68 STATUS : DIS IN PAT#: [id number] AGE: 46 ADM/REG DATE : 01/03/17 MR#: [id number] REPORT SERV DATE: 01/18/17 DICTATED BY: MIKE RAJAN DATE: 01/18/17 REPORT STATUS : Draft TRANSCRIBED BY: MODTuyet DATE: 01/18/17 Data Collection from hospitalization DISCHARGE DIAGNOSES: 1. Bacteremia - felt to be contamination. 2. End-stage renal disease. 3. History of IV drug abuse. 4. Type 2 diabetes mellitus. 5. Ischemic cardiomyopathy. 6. Polysubstance abuse. 7. Hypertension. 8. Coronary artery disease. 9. History of seizure disorder. 10.History of septic shoulder. 11.History of cerebrovascular accident. 12.History of cardiac arrest. CONSULTATIONS: Rajeev Cope M.D. PROCEDURES PERFORMED: 1. CT scan of the cervical spine without contrast and CT scan of the lumbar and thoracic spine without contrast on 01/04/2017. 2. Ceretec whole-body scan on 01/05/2017. MEDICATIONS: Xanax 0.5 mg daily as needed, Cordarone 200 mg daily, Norvasc 10 mg daily, Artificial Tears one drop twice a day as needed, aspirin 81 mg daily, Lipitor 40 mg at bedtime, PhosLo two tablets three times a day with meals, Coreg 25 mg, Flexeril 10 mg three times a day as needed, Neurontin 300 mg at bedtime, Atarax 25 mg twice a day as needed, Novolin 70/30 as instructed, Keppra 500 mg twice a day, melatonin 6 mg at bedtime, Prilosec 20 mg daily as needed, Roxicodone 30-60 mg every four hours as needed, Phenergan 25 mg every eight hours as needed, Seroquel 25 mg at bedtime as needed, Florastor one capsule twice a day, Zoloft 50 mg daily, Demadex 20 mg daily, and Ambien 10 mg at bedtime as needed. CONDITION AT DISCHARGE: Stable. DISPOSITION: The patient was discharged home on a renal diet with activities as instructed. He would follow up for dialysis as scheduled Sunday following discharge. HOSPITAL COURSE: This is a 46-year-old man who has end-stage renal disease. He undergoes hemodialysis on Mondays, Wednesdays, and Fridays via a left upper extremity AV graft that was placed by Dr. Rivera in 2015. He has a frozen shoulder with right shoulder pain. In 2015, he underwent surgery at that time with subsequent recurrent fevers that seem to have started in May 2016. He was recently discharged from [facility] after a prolonged hospitalization from 12/24/2016 until 12/29/2016 with fever and infectious disease workup at that time including a negative CT scan of the cervical and lumbar spine as well as sacrum. White cell scan on 12/19/2016 was negative as well. The patient was placed on empiric vancomycin and Zosyn therapy. He has a history of multiple back surgeries and IV drug abuse. The left upper extremity AV graft appears functional and uninfected. The Discharge Summary [facility] [address] [place]. [address] NAME: MILO KRAMER III : 68 STATUS : DIS IN PAT#: [id number] AGE: 46 ADM/REG DATE : 01/03/17 MR#: [id number] REPORT SERV DATE: 01/18/17 DICTATED BY: MIKE RAJAN DATE: 01/18/17 REPORT STATUS : Draft TRANSCRIBED BY: REED DATE: 01/18/17 patient was notified that he had gram-negative cocci in his blood, and after a discussion with Dr. Rajeev Cope, he was directed to the emergency room for admission. He had completed dialysis on the day of this admission. He seemed to be in good spirits. Currently, he has no fever and his labs were pending. He was admitted to the hospital at this time for further evaluation and treatment. Upon admission, subcu heparin was started. An MRI was requested. Repeat echocardiogram was going to be performed. The patient has a history of ischemic cardiomyopathy. His ejection fraction had improved to 40%. Sliding scale insulin was started. We initiated empiric vancomycin and Zosyn therapy. The following day, he had no edema. Antibiotics were continued. Blood cultures revealed gram-negative bacilli. The patient's ejection fraction is now 25%. He was seen by Dr. Rajeev Cope. The patient was felt to have gram-negative rolanda sepsis. The patient has not had a fever since his discharge. He had no new symptoms. He was afebrile at this time. Followup cultures were going to be obtained. On 01/05/2017, he had no new symptoms. He remained afebrile. Blood culture was negative. Zosyn was continued. [facility] scan was within normal limits. He had undergone a CT scan of the cervical lumbar and thoracic spine without contrast. An echocardiogram was performed. CT scan of the spine had shown no evidence of infection. With still no final identification of the positive blood culture, it was felt that contaminant was possible. On 01/07/2017, he remained afebrile. Blood cultures were still negative. Procalcitonin level was going to be checked. He remained on Zosyn. An echocardiogram showed no vegetation. His ejection fraction is 40%. Over the next couple of days, he continued to progress. The final blood culture results were reviewed and it was felt that the positive blood culture had been a contaminant. He was evaluated by Physical Therapy. Discharge planning was performed. On 01/09/2017, discharge instructions were given. Due to his improved and stable condition, he was discharged home with the above-stated instructions. Information collected by: Makayla Russo I submit the above information as my discharge summary. TG/REED Mike Rajan M.D. / [id number] CC: Lionel Quinonez M.D. Mark Anderson, M.D.
[2017-01-03] MEDS ORDERED: INSNOV7030 (21:07)
[2017-01-03] MEDS ORDERED: ASAB PO (21:07)
[2017-01-03] MEDS ORDERED: REFRESH OPH (21:08)
[2017-01-03 21:39] LABS: A/G RATIO 0.5 (0.7-1.9); ALBUMIN 2.9 G/DL (3.5-5.0); ALKALINE PHOSPHATASE 190 U/L (45-117); BUN (BLOOD UREA NITROGEN) 24 MG/DL (6-23); CALCIUM, SERUM 8.2 MG/DL (8.5-10.4); CHLORIDE, SERUM 102 MMOL/L (96-112); CO2 (CARBON DIOXIDE) 24 MMOL/L (24-34); GFR AFRICAN AMERICAN 8 ML/MIN (>=60); GFR NON AFRICAN AMERICAN 7 ML/MIN (>=60); GLOBULIN 5.3 G/DL (2.5-4.1); GLUCOSE, SERUM 144 MG/DL (60-99); POTASSIUM, SERUM 5.7 MMOL/L (3.5-5.3); SGOT(AST) 27 U/L (5-40); SGPT(ALT) 27 U/L (5-65); SODIUM, SERUM 135 MMOL/L (135-148); TOTAL BILIRUBIN 0.4 MG/DL (0-1.2); TOTAL PROTEIN 8.2 G/DL (6.0-8.5)
[2017-01-03 23:06] LABS: BASOPHILS 1.2 %; BASOPHILS ABSOLUTE 0.07 10/3/uL (0.0-0.16); EOSINOPHILS ABSOLUTE 0.48 10/3/uL (0.0-0.53); HEMATOCRIT 36.1 % (40.0-51.0); HEMOGLOBIN 11.7 g/dL (13.6-17.8); IMMATURE GRANULOCYTES 0.3 %; IMMATURE GRANULOCYTES ABSOLUTE 0.02 10/3/uL (0.0-0.11); LYMPHOCYTES 41.6 %; LYMPHOCYTES ABSOLUTE 2.49 10/3/uL (0.67-4.30); MEAN CORPUS HGB CONC 32.4 g/dL (32.0-36.0); MEAN CORPUSCULAR HEMOGLOB 30.5 pg (26.0-34.0); MEAN CORPUSCULAR VOLUME 94.3 fL (80-100); MEAN PLATELET VOLUME 11.4 fL (9.2-13.0); MONOCYTES 10.5 %; MONOCYTES ABSOLUTE 0.63 10/3/uL (0.21-1.20); NEUTROPHILS 38.4 %; NEUTROPHILS ABSOLUTE 2.29 10/3/uL (2.02-8.40); RBC DISTRIBUTION WIDTH 15.8 % (12.0-16.0); RED CELL COUNT 3.83 10/6/uL (4.7-6.1)
[2017-01-03 23:10] LABS: MANUAL DIFF NO %; PLATELET COUNT 229 10/3/uL (150-400)
[2017-01-04 07:06] LABS: BASOPHILS 0.8 %; BASOPHILS ABSOLUTE 0.04 10/3/uL (0.0-0.16); EOSINOPHILS 7.9 %; HEMATOCRIT 33.5 % (40.0-51.0); HEMOGLOBIN 10.6 g/dL (13.6-17.8); IMMATURE GRANULOCYTES 0.2 %; IMMATURE GRANULOCYTES ABSOLUTE 0.01 10/3/uL (0.0-0.11); LYMPHOCYTES 42.5 %; LYMPHOCYTES ABSOLUTE 2.15 10/3/uL (0.67-4.30); MEAN CORPUS HGB CONC 31.6 g/dL (32.0-36.0); MEAN CORPUSCULAR HEMOGLOB 29.5 pg (26.0-34.0); MEAN CORPUSCULAR VOLUME 93.3 fL (80-100); MEAN PLATELET VOLUME 10.9 fL (9.2-13.0); MONOCYTES 10.9 %; MONOCYTES ABSOLUTE 0.55 10/3/uL (0.21-1.20); NEUTROPHILS 37.7 %; NEUTROPHILS ABSOLUTE 1.91 10/3/uL (2.02-8.40); PLATELET COUNT 245 10/3/uL (150-400); RBC DISTRIBUTION WIDTH 15.6 % (12.0-16.0); RED CELL COUNT 3.59 10/6/uL (4.7-6.1); WHITE BLOOD CELLS 5.1 10/3/uL (4.5-10.5)
[2017-01-04 07:21] LABS: MANUAL DIFF NO %
[2017-01-04 07:25] LABS: ALBUMIN 2.6 G/DL (3.5-5.0); CALCIUM, SERUM 7.8 MG/DL (8.5-10.4); CHLORIDE, SERUM 105 MMOL/L (96-112); CO2 (CARBON DIOXIDE) 28 MMOL/L (24-34); DIRECT BILIRUBIN 0.1 MG/DL (0.0-0.4); INDIRECT BILIRUBIN(NOT ORDER) 0.3 MG/DL (0.1-0.9); SGOT(AST) 10 U/L (5-40); SGPT(ALT) 20 U/L (5-65); SODIUM, SERUM 140 MMOL/L (135-148); TOTAL BILIRUBIN 0.4 MG/DL (0-1.2); TOTAL PROTEIN 7.2 G/DL (6.0-8.5)
[2017-01-04 07:26] LABS: ALKALINE PHOSPHATASE 157 U/L (45-117); BUN (BLOOD UREA NITROGEN) 30 MG/DL (6-23); CREATININE 8.52 MG/DL (0.70-1.30); GFR AFRICAN AMERICAN 8 ML/MIN (>=60); GFR NON AFRICAN AMERICAN 7 ML/MIN (>=60); GLUCOSE, SERUM 113 MG/DL (60-99); PHOSPHORUS, SERUM 5.6 MG/DL (2.5-4.5); POTASSIUM, SERUM 4.5 MMOL/L (3.5-5.3)
[2017-01-04 09:48] LABS: PROCALCITONIN 23.72 ng/mL (<0.5)
[2017-01-06 08:04] LABS: BASOPHILS 0.5 %; BASOPHILS ABSOLUTE 0.02 10/3/uL (0.0-0.16); EOSINOPHILS 6.9 %; EOSINOPHILS ABSOLUTE 0.26 10/3/uL (0.0-0.53); HEMATOCRIT 30.6 % (40.0-51.0); HEMOGLOBIN 9.8 g/dL (13.6-17.8); LYMPHOCYTES 44.9 %; MEAN CORPUSCULAR HEMOGLOB 29.6 pg (26.0-34.0); MEAN CORPUSCULAR VOLUME 92.4 fL (80-100); MEAN PLATELET VOLUME 11.2 fL (9.2-13.0); MONOCYTES ABSOLUTE 0.38 10/3/uL (0.21-1.20); NEUTROPHILS 37.7 %; NEUTROPHILS ABSOLUTE 1.43 10/3/uL (2.02-8.40); PLATELET COUNT 249 10/3/uL (150-400); RBC DISTRIBUTION WIDTH 15.6 % (12.0-16.0); RED CELL COUNT 3.31 10/6/uL (4.7-6.1); WHITE BLOOD CELLS 3.8 10/3/uL (4.5-10.5)
[2017-01-06 08:05] LABS: MANUAL DIFF NO %
[2017-01-06 08:37] LABS: ALBUMIN 2.6 G/DL (3.5-5.0); CALCIUM, SERUM 7.4 MG/DL (8.5-10.4); CHLORIDE, SERUM 106 MMOL/L (96-112); CO2 (CARBON DIOXIDE) 25 MMOL/L (24-34); GFR AFRICAN AMERICAN 6 ML/MIN (>=60); GFR NON AFRICAN AMERICAN 5 ML/MIN (>=60); GLUCOSE, SERUM 129 MG/DL (60-99); PHOSPHORUS, SERUM 6.4 MG/DL (2.5-4.5); POTASSIUM, SERUM 4.9 MMOL/L (3.5-5.3); SODIUM, SERUM 139 MMOL/L (135-148)
[2017-01-06 08:38] LABS: BUN (BLOOD UREA NITROGEN) 48 MG/DL (6-23)
[2017-01-07 07:26] LABS: BASOPHILS 1.8 %; BASOPHILS ABSOLUTE 0.06 10/3/uL (0.0-0.16); EOSINOPHILS 5.8 %; EOSINOPHILS ABSOLUTE 0.19 10/3/uL (0.0-0.53); HEMATOCRIT 35.6 % (40.0-51.0); HEMOGLOBIN 11.2 g/dL (13.6-17.8); IMMATURE GRANULOCYTES 0.3 %; IMMATURE GRANULOCYTES ABSOLUTE 0.01 10/3/uL (0.0-0.11); LYMPHOCYTES 45.9 %; LYMPHOCYTES ABSOLUTE 1.51 10/3/uL (0.67-4.30); MANUAL DIFF NO %; MEAN CORPUS HGB CONC 31.5 g/dL (32.0-36.0); MEAN CORPUSCULAR HEMOGLOB 29.8 pg (26.0-34.0); MEAN CORPUSCULAR VOLUME 94.7 fL (80-100); MEAN PLATELET VOLUME 10.6 fL (9.2-13.0); MONOCYTES 14.3 %; MONOCYTES ABSOLUTE 0.47 10/3/uL (0.21-1.20); NEUTROPHILS 31.9 %; NEUTROPHILS ABSOLUTE 1.05 10/3/uL (2.02-8.40); PLATELET COUNT 243 10/3/uL (150-400); RBC DISTRIBUTION WIDTH 15.7 % (12.0-16.0); RED CELL COUNT 3.76 10/6/uL (4.7-6.1); WHITE BLOOD CELLS 3.3 10/3/uL (4.5-10.5)
[2017-01-07 07:43] LABS: CALCIUM, SERUM 8.2 MG/DL (8.5-10.4); CHLORIDE, SERUM 107 MMOL/L (96-112); CO2 (CARBON DIOXIDE) 27 MMOL/L (24-34); POTASSIUM, SERUM 5.1 MMOL/L (3.5-5.3); SODIUM, SERUM 140 MMOL/L (135-148)
[2017-01-07 07:44] LABS: ALBUMIN 3.2 G/DL (3.5-5.0); BUN (BLOOD UREA NITROGEN) 30 MG/DL (6-23); CREATININE 8.29 MG/DL (0.70-1.30); GFR AFRICAN AMERICAN 8 ML/MIN (>=60); GFR NON AFRICAN AMERICAN 7 ML/MIN (>=60); GLUCOSE, SERUM 99 MG/DL (60-99); PHOSPHORUS, SERUM 5.3 MG/DL (2.5-4.5)
[2017-01-08 14:31] LABS: BASOPHILS 1.6 %; BASOPHILS ABSOLUTE 0.05 10/3/uL (0.0-0.16); EOSINOPHILS 6.8 %; EOSINOPHILS ABSOLUTE 0.21 10/3/uL (0.0-0.53); HEMOGLOBIN 10.2 g/dL (13.6-17.8); IMMATURE GRANULOCYTES 0.3 %; IMMATURE GRANULOCYTES ABSOLUTE 0.01 10/3/uL (0.0-0.11); LYMPHOCYTES 46.6 %; LYMPHOCYTES ABSOLUTE 1.44 10/3/uL (0.67-4.30); MEAN CORPUS HGB CONC 32.4 g/dL (32.0-36.0); MEAN CORPUSCULAR HEMOGLOB 30.2 pg (26.0-34.0); MEAN CORPUSCULAR VOLUME 93.2 fL (80-100); MEAN PLATELET VOLUME 10.4 fL (9.2-13.0); MONOCYTES 9.7 %; NEUTROPHILS ABSOLUTE 1.08 10/3/uL (2.02-8.40); PLATELET COUNT 233 10/3/uL (150-400); RBC DISTRIBUTION WIDTH 15.4 % (12.0-16.0); RED CELL COUNT 3.38 10/6/uL (4.7-6.1); WHITE BLOOD CELLS 3.1 10/3/uL (4.5-10.5)
[2017-01-08 14:33] LABS: HEMATOCRIT 31.5 % (40.0-51.0)
[2017-01-08 14:34] LABS: MANUAL DIFF NO %
[2017-01-08 14:46] LABS: BUN (BLOOD UREA NITROGEN) 38 MG/DL (6-23); CALCIUM, SERUM 8.5 MG/DL (8.5-10.4); CHLORIDE, SERUM 107 MMOL/L (96-112); CO2 (CARBON DIOXIDE) 28 MMOL/L (24-34); CREATININE 9.77 MG/DL (0.70-1.30); GFR AFRICAN AMERICAN 7 ML/MIN (>=60); GFR NON AFRICAN AMERICAN 6 ML/MIN (>=60); GLUCOSE, SERUM 140 MG/DL (60-99); POTASSIUM, SERUM 5.6 MMOL/L (3.5-5.3); SODIUM, SERUM 143 MMOL/L (135-148)
[2017-01-08 15:24] LABS: PROCALCITONIN 2.49 ng/mL (<0.5)
[2017-01-08] MEDS ORDERED: MELA3 PO (17:15)
[2017-01-08] MEDS ORDERED: FLORASTOR250 MG PO (17:17)
== END 2017-01-09 | disposition home or self-care (01) | DRG 871 ==
LOC: ER 20:31 → 2SO 20:49
PROVIDERS: Hospitalist; Internal Medicine Nephrology; Registered Nurse
DX: R78.81 Bacteremia (principal); N18.6 End stage renal disease; E11.22 Type 2 diabetes mellitus with diabetic chronic kidney disease; I12.0 Hypertensive chronic kidney disease with stage 5 chronic kidney disease or end stage renal disease; G40.909 Epilepsy, unspecified, not intractable, without status epilepticus; I25.5 Ischemic cardiomyopathy; I25.10 Atherosclerotic heart disease of native coronary artery without angina pectoris; F19.10 Other psychoactive substance abuse, uncomplicated; G89.29 Other chronic pain; Z99.2 Dependence on renal dialysis; Z98.890 Other specified postprocedural states; Z91.013 Allergy to seafood; Z91.19 Patient's noncompliance with other medical treatment and regimen; Z86.74 Personal history of sudden cardiac arrest; Z86.73 Personal history of transient ischemic attack (TIA), and cerebral infarction without residual deficits
CPT/HCPCS: 71020; 72125; 72128; 72131; 78806; 80053; 80069; 80076; 81001; 82962; 83735; 84145; 85025; 87040; 97161-GP; 99284; A9270-GY; A9569; C8929; G0257; G8978-CH-GP; G8979-CH-GP; G8980-CH-GP; J1170; J1200; J2543; J2550; J3370; P9047; Q9957

== ENCOUNTER 2017-01-15 20:12 | Emergency (ER) | payer MEDICARE ==
[~2017-01-15 20:12] MED LIST changes: +INSNOV7030; +REFRESH OPH
[2017-01-15 21:40] LABS: BASOPHILS 0.2 %; BASOPHILS ABSOLUTE 0.04 10/3/uL (0.0-0.16); EOSINOPHILS 0.5 %; EOSINOPHILS ABSOLUTE 0.11 10/3/uL (0.0-0.53); HEMATOCRIT 33.3 % (40.0-51.0); HEMOGLOBIN 10.9 g/dL (13.6-17.8); IMMATURE GRANULOCYTES 1.3 %; IMMATURE GRANULOCYTES ABSOLUTE 0.27 10/3/uL (0.0-0.11); LYMPHOCYTES 10.4 %; LYMPHOCYTES ABSOLUTE 2.11 10/3/uL (0.67-4.30); MEAN CORPUS HGB CONC 32.7 g/dL (32.0-36.0); MEAN CORPUSCULAR HEMOGLOB 30.3 pg (26.0-34.0); MEAN CORPUSCULAR VOLUME 92.5 fL (80-100); MEAN PLATELET VOLUME 11.4 fL (9.2-13.0); MONOCYTES 6.7 %; MONOCYTES ABSOLUTE 1.37 10/3/uL (0.21-1.20); NEUTROPHILS 80.9 %; NEUTROPHILS ABSOLUTE 16.47 10/3/uL (2.02-8.40); RBC DISTRIBUTION WIDTH 15.7 % (12.0-16.0)
[2017-01-15 21:41] LABS: MANUAL DIFF NO %; PLATELET COUNT 158 10/3/uL (150-400); WHITE BLOOD CELLS 20.4 10/3/uL (4.5-10.5)
[2017-01-15 21:56] LABS: A/G RATIO 0.6 (0.7-1.9); ALBUMIN 3.1 G/DL (3.5-5.0); CALCIUM, SERUM 8.6 MG/DL (8.5-10.4); CHLORIDE, SERUM 98 MMOL/L (96-112); GLOBULIN 5.2 G/DL (2.5-4.1); GLUCOSE, SERUM 125 MG/DL (60-99); SGOT(AST) 41 U/L (5-40); SGPT(ALT) 63 U/L (5-65); SODIUM, SERUM 137 MMOL/L (135-148); TOTAL PROTEIN 8.3 G/DL (6.0-8.5)
[2017-01-15 21:57] LABS: ALKALINE PHOSPHATASE 223 U/L (45-117); BUN (BLOOD UREA NITROGEN) 23 MG/DL (6-23); CO2 (CARBON DIOXIDE) 33 MMOL/L (24-34); CREATININE 6.97 MG/DL (0.70-1.30); GFR AFRICAN AMERICAN 10 ML/MIN (>=60); GFR NON AFRICAN AMERICAN 9 ML/MIN (>=60); POTASSIUM, SERUM 4.3 MMOL/L (3.5-5.3); TOTAL BILIRUBIN 1.2 MG/DL (0-1.2)
== END 2017-01-16 00:17 | disposition home or self-care (01) ==
LOC: ER 20:12
PROVIDERS: Emergency Medicine
DX: D72.829 Elevated white blood cell count, unspecified (principal); R11.10 Vomiting, unspecified; E11.9 Type 2 diabetes mellitus without complications; I10 Essential (primary) hypertension; Z91.013 Allergy to seafood; Z86.73 Personal history of transient ischemic attack (TIA), and cerebral infarction without residual deficits; Z95.810 Presence of automatic (implantable) cardiac defibrillator; Z79.899 Other long term (current) drug therapy
CPT/HCPCS: 74022; 74176; 80053; 83690; 85025; 87040; 96372; 99284; J2550

== ENCOUNTER 2017-01-30 17:42 | Emergency (ER) | payer MEDICARE ==
[2017-01-30 20:15] LABS: BASOPHILS 0.6 %; BASOPHILS ABSOLUTE 0.03 10/3/uL (0.0-0.16); EOSINOPHILS 4.7 %; EOSINOPHILS ABSOLUTE 0.23 10/3/uL (0.0-0.53); HEMATOCRIT 36.7 % (40.0-51.0); HEMOGLOBIN 11.8 g/dL (13.6-17.8); IMMATURE GRANULOCYTES 0.2 %; IMMATURE GRANULOCYTES ABSOLUTE 0.01 10/3/uL (0.0-0.11); LYMPHOCYTES 33.3 %; LYMPHOCYTES ABSOLUTE 1.62 10/3/uL (0.67-4.30); MANUAL DIFF NO %; MEAN CORPUS HGB CONC 32.2 g/dL (32.0-36.0); MEAN CORPUSCULAR HEMOGLOB 29.6 pg (26.0-34.0); MEAN PLATELET VOLUME 10.1 fL (9.2-13.0); MONOCYTES 9.5 %; MONOCYTES ABSOLUTE 0.46 10/3/uL (0.21-1.20); NEUTROPHILS 51.7 %; NEUTROPHILS ABSOLUTE 2.51 10/3/uL (2.02-8.40); PLATELET COUNT 214 10/3/uL (150-400); RBC DISTRIBUTION WIDTH 15.1 % (12.0-16.0); RED CELL COUNT 3.99 10/6/uL (4.7-6.1); WHITE BLOOD CELLS 4.9 10/3/uL (4.5-10.5)
[2017-01-30 20:33] LABS: CHLORIDE, SERUM 104 MMOL/L (96-112); SODIUM, SERUM 132 MMOL/L (135-148)
[2017-01-30 20:36] LABS: BUN (BLOOD UREA NITROGEN) 53 MG/DL (6-23); CALCIUM, SERUM 7.2 MG/DL (8.5-10.4); CO2 (CARBON DIOXIDE) 23 MMOL/L (24-34); CREATININE 9.43 MG/DL (0.70-1.30); GFR AFRICAN AMERICAN 7 ML/MIN (>=60); GFR NON AFRICAN AMERICAN 6 ML/MIN (>=60); GLUCOSE, SERUM 195 MG/DL (60-99); POTASSIUM, SERUM 5.2 MMOL/L (3.5-5.3)
== END 2017-01-30 21:51 | disposition home or self-care (01) ==
LOC: ER 17:42
PROVIDERS: Physician Assistant
DX: G89.29 Other chronic pain (principal); M54.5 Low back pain; R07.81 Pleurodynia; I12.9 Hypertensive chronic kidney disease with stage 1 through stage 4 chronic kidney disease, or unspecified chronic kidney disease; N18.9 Chronic kidney disease, unspecified; E11.22 Type 2 diabetes mellitus with diabetic chronic kidney disease; Z99.2 Dependence on renal dialysis; F17.200 Nicotine dependence, unspecified, uncomplicated; I25.10 Atherosclerotic heart disease of native coronary artery without angina pectoris; I42.9 Cardiomyopathy, unspecified; Z95.810 Presence of automatic (implantable) cardiac defibrillator; Z86.73 Personal history of transient ischemic attack (TIA), and cerebral infarction without residual deficits; Z91.013 Allergy to seafood; Z79.891 Long term (current) use of opiate analgesic; Z79.82 Long term (current) use of aspirin; Z79.4 Long term (current) use of insulin; Z79.899 Other long term (current) drug therapy
CPT/HCPCS: 71010; 80048; 81001; 85025; 96372; 99283; J0696; J2800